=== PATIENT | female | born 1935 | race Caucasian/White ===

== ENCOUNTER 2017-09-25 11:23 | Emergency (ER) | payer MEDICAID, MEDICARE ==
[2017-09-25 13:31] LABS: ABS Basophils 0 10^3/ul (0-0.2); ABS Eosinophils 0.1 10^3/ul (0-0.6); ABS Lymphocytes 1.4 10^3/ul (1.0-4.8); ABS Monocytes 0.4 10^3/ul (0-0.8); ABS Neutrophils 3.8 10^3/ul (1.5-7.7); ABS Nucleated RBC 0 10^3/ul; Eosinophil % 2.4 % (0-6); Hematocrit 43 % (35-47); Hemoglobin 14.4 g/dl (12.0-16.0); Lymphocyte % 23.7 % (25-47); Mean Corpuscular HGB Conc 34 g/dl (31-36); Mean Corpuscular Hemoglobin 31 pg (27-31); Mean Corpuscular Volume 92 fL (80-97); Mean Platelet Volume 6.8 um3 (7.4-10.4); Nucleated Red Blood Cells % 0; Platelet Count 210 10^3/ul (150-450); Red Blood Count 4.68 10^6/ul (4.00-5.40); Red Cell Distribution Width 14 % (10.5-15); White Blood Count 5.8 10^3/ul (3.5-10.8)
--- NOTE | 2017-09-25 13:32 | ED ---
Lower Extremity - HPI Summary HPI Summary: This is scribe Harriettyrel Cali documenting for attending Rivera Díaz MD. 82 year old F referred by PMD to [facility] accompanied by female friend complains of lower left leg edema since this morning. Symptoms aggravated by nothing. Symptoms alleviated by nothing. Patient reports blisters on lower left leg that are itchy. She has applied Neosporin over blisters. Patient denies upper left leg pain, shortness of breath, and chest pain. Patient has no hx PE. - History of Current Complaint Chief Complaint: EDExtremityLower Stated Complaint: LT LEG SWELLING Time Seen by Provider: 09/25/17 13:19 Hx Obtained From: Patient Onset/Duration: Still Present Timing: Constant Location: Other - lower left leg Associated Signs And Symptoms: Positive: Negative - upper left leg pain, shortness of breath, and chest pain, Other - blisters on lower left leg that are itchy Aggravating Factor(s): Nothing Alleviating Factor(s): Nothing - Allergies/Home Medications Allergies/Adverse Reactions: Allergies Allergy/AdvReac Type Severity Reaction Status Date / Time MS Aspirin [Aspirin] Allergy Intermediate Rash Verified 09/23/15 06:56 MS Ibuprofen [Ibuprofen] Allergy Intermediate Hives Verified 09/23/15 06:56 MS NSAIDs [NSAIDs] Allergy Mild Rash Verified 09/23/15 06:56 MS Hydrochlorothiazide Allergy Unknown Hives Verified 09/23/15 06:56 [Hydrochlorothiazide] MS Lisinopril [Lisinopril] Allergy Unknown Hives Verified 09/23/15 06:56 MS Meperidine Allergy Unknown Hives Verified 09/23/15 06:56 [From Demerol HCl] BEES Allergy Swelling Uncoded 09/23/15 06:56 Home Medications: Home Medications Diltiazem CD CAP* [Cardizem CD CAP*] 240 mg PO DAILY 09/25/17 [History Confirmed 09/25/17] Levothyroxine TAB* [Synthroid TAB*] 125 mcg PO DAILY 09/25/17 [History Confirmed 09/25/17] Pravastatin (NF) [Pravachol (NF)] 40 mg PO DAILY 09/25/17 [History Confirmed ] glipiZIDE TAB.XL* [Glucotrol XL*] 5 mg PO BID 09/25/17 [History Confirmed 07/23/ 18] metFORMIN* [Glucophage 1000 MG TAB *] 1,000 mg PO BID 09/25/17 [History Confirmed 09/25/17] PMH/Surg Hx/FS Hx/Imm Hx Previously Healthy: No Endocrine/Hematology History: Reports: 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, Hx Thyroid Disease Cardiovascular History: Reports: Hx Hypercholesterolemia, Hx Hypertension Denies: Hx Pacemaker/ICD, Other Cardiovascular Problems/Disorders Respiratory History: Reports: Hx Seasonal Allergies GI History: Reports: Hx Gastroesophageal Reflux Disease Musculoskeletal History: Reports: Hx Arthritis - BRACE AFO RIGHT LEG, Hx Back Problems, Other Musculoskeletal History - low back pain Sensory History: Reports: Hx Cataracts - JOAQUIN, Hx Contacts or Glasses - glasses, Other Sensory Impairments - mild mental retardation Denies: Hx Hearing Aid Opthamlomology History: Reports: Hx Cataracts - JOAQUIN, Hx Contacts or Glasses - glasses, Other Sensory Impairments - mild mental retardation Neurological History: Reports: Hx Developmental Delay, Other Neuro Impairments/ Disorders - 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 cholecystectomy. left TKR Hx Anesthesia Reactions: No Infectious Disease History: No Infectious Disease History: Denies: Traveled Outside the [place] in Last 30 Days - Family History Known Family History: Positive: Other - Mother and two sisters have cataracts - Social History Alcohol Use: None Hx Substance Use: No Substance Use Type: Reports: None Hx Tobacco Use: No Smoking Status (MU): Never Smoked Tobacco Have You Smoked in the Last Year: No Review of Systems Negative: Chest Pain Negative: Shortness Of Breath Musculoskeletal: Negative - upper left leg pain Positive: Edema - lower left leg Positive: Other - blisters on left leg that are itchy All Other Systems Reviewed And Are Negative: Yes Physical Exam - Summary Physical Exam Summary: Appearance: The patient is well-nourished in no acute distress and in no acute pain. Skin: The skin is warm and dry and skin color reflects adequate perfusion. HEENT: The head is normocephalic and atraumatic. The pupils are equal and reactive. The conjunctivae are clear and without drainage. Nares are patent and without drainage. Mouth reveals moist mucous membranes and the throat is without erythema and exudate. The external ears are intact. The ear canals are patent and without drainage. The tympanic membranes are intact. Neck: The neck is supple with full range of motion and non-tender. There are no carotid bruits. There is no neck vein distension. Respiratory: Chest is non-tender. Lungs are clear to auscultation and breath sounds are symmetrical and equal. Cardiovascular: Heart is regular rate and rhythm. There is no murmur or rub auscultated. There is no peripheral edema and pulses are symmetrical and equal. Abdomen: The abdomen is soft and non-tender. There are normal bowel sounds heard in all four quadrants and there is no organomegaly palpated. Musculoskeletal: Swelling in the left lower extremity with some small erythematous areas and some weeping. Left lower extremity is nontender in the common femoral canal Neurological: Patient is alert and oriented to person, place and time. The patient has symmetrical motor strength in all four extremities. Cranial nerves are grossly intact. Deep tendon reflexes are symmetrical and equal in all four extremities. Psychiatric: The patient has an appropriate affect and does not exhibit any anxiety or depression. Triage Information Reviewed: Yes Vital Signs On Initial Exam: Initial Vitals Temp Pulse Resp BP Pulse Ox 97.1 F 78 16 124/75 95 09/25/17 11:25 09/25/17 11:25 09/25/17 11:25 09/25/17 11:25 09/25/17 11:25 Vital Signs Reviewed: Yes Diagnostics - Vital Signs Vital Signs Temp Pulse Resp BP Pulse Ox 09/25/17 13:16 79 188/99 97 09/25/17 11:25 97.1 F 78 16 124/75 95 - Laboratory Result Diagrams: 09/25/17 13:18 09/25/17 13:18 Lab Statement: Any lab studies that have been ordered have been reviewed, and results considered in the medical decision making process. - Radiology CXR Radiology Interpretation Completed By: Radiologist - CARDIOMEGALY WITH PULMONARY INTERSTITIAL EDEMA. ED physician has reviewed this report. - Additional Comments Diagnostic Additional Comments: Venous Doppler Study, per radiologist, shows CALF EDEMA LEADING TO MILDLY LIMITED EVALUATION OF THE TIBIAL VEINS. NO EVIDENCE OF DEEP VENOUS THROMBOSIS. ED physician has reviewed this report. Re-Evaluation - Re-Evaluation First Eval Re-Evaluation Time: 16:08 Comment: patient feels better and is agreeable to discharge Lower Extremity Course/Dx - Course Course Of Treatment: Ms. Barlow presented with a concern for left lower extremity swelling. She had been noted by her daughter to have some open areas and some blisters on her left lower extremity and swelling today. She complained only of itching and denied pain. Doppler was negative for a DVT. She was afebrile, vitals and labs were within normal limits. I'm not sure why she would have swelling occur so quickly. This could be a contact dermatitis she does state that it's very itchy. Alternatively the swelling may have come on suddenly and gone unnoticed until she began to have some weeping. She has triamcinolone 1% cream at home and I recommended she use that and she elevate her leg to get the swelling down. I recommended close follow-up with her PCP. - Diagnoses Provider Diagnoses: Contact dermatitis Discharge - Sign-Out/Discharge Documenting (check all that apply): Patient Departure - Discharge - Discharge Plan Condition: Stable Disposition: HOME Patient Education Materials: Contact Dermatitis (ED) Referrals: Miguel A Brandon MD [Primary Care Provider] - If Needed Additional Instructions: Elevate your leg as much as possible. Use your Triamcinolone topical cream. Follow up with Dr. Brandon, your primary care provider, if not improved. RETURN TO THE EMERGENCY DEPARTMENT FOR NEW OR WORSENING SYMPTOMS. - Billing Disposition and Condition Condition: STABLE Disposition: Home
[2017-09-25 13:48] LABS: EGFR Non-African American 80.5 (>60)
--- NOTE | 2017-09-25 14:05 | RAD ---
HISTORY: SOB COMPARISONS: 11/21/2007 VIEWS: 2: Frontal and lateral views of the chest. FINDINGS: CARDIOMEDIASTINAL SILHOUETTE: The cardiac silhouette is enlarged. The cardiomediastinal silhouette is otherwise normal. THU: The thu are normal. PLEURA: The costophrenic angles are sharp. No pleural abnormalities are noted. LUNG PARENCHYMA: There is a diffuse reticular pattern with indistinct pulmonary vessels. ABDOMEN: The upper abdomen is clear. There is no subphrenic gas. BONES AND SOFT TISSUES: Degenerative changes are noted along the spine. OTHER: None. IMPRESSION: CARDIOMEGALY WITH PULMONARY INTERSTITIAL EDEMA
--- NOTE | 2017-09-25 15:09 | RAD ---
INDICATION: Pain and swelling. COMPARISON: None TECHNIQUE: Duplex interrogation of the left lowerextremity was performed. FINDINGS: Deep veins: The common femoral, great saphenous, profunda femoris, proximal, mid, and distal deep femoral, popliteal, posterior tibial, and peroneal veins are patent. There is normal compressibility, augmentation, and phasic flow. Evaluation of the tibial veins is mildly limited due to edema Superficial veins: There are no findings of superficial thrombophlebitis. Popliteal fossa:There is no evidence of a popliteal cyst. Soft tissues:Calf edema. IMPRESSION: CALF EDEMA LEADING TO MILDLY LIMITED EVALUATION OF THE TIBIAL VEINS. NO EVIDENCE OF DEEP VENOUS THROMBOSIS.
[2017-09-25 16:37] VITALS: BP 146/96
== END 2017-09-25 16:39 | disposition home or self-care (01) ==
LOC: ED 11:23
DX: L25.9 Unspecified contact dermatitis, unspecified cause (principal); J81.1 Chronic pulmonary edema; I51.7 Cardiomegaly; E11.40 Type 2 diabetes mellitus with diabetic neuropathy, unspecified; E07.9 Disorder of thyroid, unspecified; Z79.84 Long term (current) use of oral hypoglycemic drugs; Z79.899 Other long term (current) drug therapy; Z88.8 Allergy status to other drugs, medicaments and biological substances; Z88.6 Allergy status to analgesic agent; Z88.5 Allergy status to narcotic agent
CPT/HCPCS: 36415; 71046; 80053; 83605; 83880; 84484; 85025; 86140; 87040; 99283

== ENCOUNTER 2018-11-12 16:27 | Inpatient (IN) | payer MEDICAID, MEDICARE ==
--- NOTE | 2018-11-12 17:21 | ED ---
Lower Extremity - HPI Summary HPI Summary: Patient complains of outpatient ultrasound of left leg positive for DVT. States swelling started 3 days ago, was seen by PCP today and arranged for outpatient ultrasound. Patient denies CP, SOB, fever, cough, sore throat, N/V/ V abdominal pain, change in urine, change in BM. Denies history of blood clots , history of cancer, history of recent surgery or trauma, history of long travel. Area of thrombosis extends from external iliac down to posterior tibial. Medical history is DM, hypothyroid. No anti-coag. - History of Current Complaint Chief Complaint: EDExtremityLower Stated Complaint: DVT LT LEG PER PT Time Seen by Provider: 11/12/18 16:42 Hx Obtained From: Patient, Family/Medical Director Mechanism Of Injury: Unknown Severity Currently: None Pain Intensity: 0 Pain Scale Used: 0-10 Numeric Associated Signs And Symptoms: Positive: Swelling, Redness Aggravating Factor(s): Nothing Alleviating Factor(s): Nothing Able to Bear Weight: Yes - Allergies/Home Medications Allergies/Adverse Reactions: Allergies Allergy/AdvReac Type Severity Reaction Status Date / Time aspirin Allergy Intermediate Rash Verified 11/12/18 22:35 ibuprofen Allergy Intermediate Hives Verified 11/12/18 22:35 NSAIDS (Non-Steroidal Allergy Mild Rash Verified 11/12/18 22:35 Anti-Inflamma hydrochlorothiazide Allergy Unknown Hives Verified 11/12/18 22:35 lisinopril Allergy Unknown Hives Verified 11/12/18 22:35 meperidine Allergy Unknown Hives Verified 11/12/18 22:35 BEES Allergy Unknown Swelling Uncoded 11/12/18 22:50 Home Medications: Home Medications Empaglifozin (NF) [Jardiance] 25 mg PO DAILY 11/12/18 [History Confirmed ] Nystatin TOP POWDER* 1 applic TOPICAL BID 11/12/18 [History Confirmed 11/12/18] Torsemide TAB* [Demadex 20 MG*] 20 mg PO DAILY 11/12/18 [History Confirmed 11/12] Valsartan TAB* [Diovan TAB*] 80 mg PO DAILY 11/12/18 [History Confirmed 11/12/18 ] PMH/Surg Hx/FS Hx/Imm Hx Endocrine/Hematology History: Reports: 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, Hx Thyroid Disease Cardiovascular History: Reports: Hx Hypercholesterolemia, Hx Hypertension Denies: Hx Pacemaker/ICD, Other Cardiovascular Problems/Disorders Respiratory History: Reports: Hx Seasonal Allergies GI History: Reports: Hx Gastroesophageal Reflux Disease Musculoskeletal History: Reports: Hx Arthritis - BRACE AFO RIGHT LEG, Hx Back Problems, Other Musculoskeletal History - low back pain Sensory History: Reports: Hx Cataracts - JOAQUIN, Hx Contacts or Glasses - glasses, Other Sensory Impairments - mild mental retardation Denies: Hx Hearing Aid Opthamlomology History: Reports: Hx Cataracts - JOAQUIN, Hx Contacts or Glasses - glasses, Other Sensory Impairments - mild mental retardation Neurological History: Reports: Hx Developmental Delay, Other Neuro Impairments/ Disorders - 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 cholecystectomy. left TKR Hx Anesthesia Reactions: No Infectious Disease History: No Infectious Disease History: Denies: Traveled Outside the [place] in Last 30 Days - Family History Known Family History: Positive: Other - Mother and two sisters have cataracts - Social History Alcohol Use: None Hx Substance Use: No Substance Use Type: Reports: None Hx Tobacco Use: No Smoking Status (MU): Never Smoked Tobacco Have You Smoked in the Last Year: No Review of Systems Constitutional: Negative Eyes: Negative ENT: Negative Cardiovascular: Negative Respiratory: Negative Gastrointestinal: Negative Genitourinary: Negative Musculoskeletal: Negative Skin: Other Neurological: Negative Psychological: Normal All Other Systems Reviewed And Are Negative: Yes Physical Exam - Summary Physical Exam Summary: Redness and swelling to left lower extremity distal to the knee. No pain with palpation. Triage Information Reviewed: Yes Vital Signs On Initial Exam: Initial Vitals Temp Pulse Resp BP Pulse Ox 96.5 F 90 18 119/67 98 11/12/18 16:30 11/12/18 16:30 11/12/18 16:30 11/12/18 16:30 11/12/18 16:30 Vital Signs Reviewed: Yes Appearance: Positive: Well-Appearing Skin: Positive: Warm Head/Face: Positive: Normal Head/Face Inspection Eyes: Positive: Normal ENT: Positive: Normal ENT inspection Neck: Positive: Supple Respiratory/Lung Sounds: Positive: Clear to Auscultation Cardiovascular: Positive: Normal Abdomen Description: Positive: Nontender Musculoskeletal: Positive: Normal Neurological: Positive: Normal Psychiatric: Positive: Normal AVPU Assessment: Alert - [place] Coma Scale Best Eye Response: 4 - Spontaneous Best Motor Response: 6 - Obeys Commands Best Verbal Response: 5 - Oriented Coma Scale Total: 15 Diagnostics - Vital Signs Vital Signs Temp Pulse Resp BP Pulse Ox 11/12/18 16:30 96.5 F 90 18 119/67 98 - Laboratory Result Diagrams: 11/12/18 17:50 11/14/18 05:43 Lab Statement: Any lab studies that have been ordered have been reviewed, and results considered in the medical decision making process. Lower Extremity Course/Dx - Course Course Of Treatment: Patient complains of outpatient ultrasound of left leg positive for DVT. States swelling started 3 days ago, was seen by PCP today and arranged for outpatient ultrasound. Patient denies CP, SOB, fever, cough, sore throat, N/V/V abdominal pain, change in urine, change in BM. Denies history of blood clots, history of cancer, history of recent surgery or trauma, history of long travel. Area of thrombosis extends from external iliac down to posterior tibial. Medical history is DM, hypothyroid. No anti-coag. Vital signs within normal limits. Labs unremarkable. CTA chest taken out of caution due to proximal thrombosis. Positive for bilateral PE with right heart strain.. EKG heart rate of 86, atrial flutter. The computer reading indicates acute [place]. EKG reviewed by attending and by collector of aquarium specimens business analyst sales operations Dr. Sandoval who stated this was not STEMI, and to just treat PE. Admitted to hospitalist. - Diagnoses Provider Diagnoses: DVT (deep venous thrombosis), Pulmonary embolism Discharge ED - Sign-Out/Discharge Documenting (check all that apply): Patient Departure All imaging exams completed and their final reports reviewed: No Patient Received Moderate/Deep Sedation with Procedure: No - Discharge Plan Condition: Stable Disposition: ADMITTED TO [facility] - Billing Disposition and Condition Condition: STABLE Disposition: Admitted to [facility]
--- OUTSIDE RECORDS SUMMARY | 2018-11-12 17:36 | XMS REPORT | Summary of Care ---
:1935 Author Organization [facility] Address [address] [place] [address] Care Team Providers Name Role Phone Miguel A Brandon MD Primary Care Provider Reason for Referral MRI/CAT/PET Scan (Routine) Status Reason Specialty Diagnoses / Procedures Referred By Contact Referred To Contact Closed Diagnoses Left leg swelling Miguel A Brandon, [facility] Procedures VL LOWER EXTREMITY DUPLEX VEINS LEFT [facility] [address] [place] [address] [address] Reason for Visit Reason Comments Check Up left leg swelling since 11/09/2018. Patient notes pain in the left hip. No known injury Encounter Details Date Type Department Care Team Description 11/12/2018 Office Visit [place] [facility] Miguel A Brandon, Left leg swelling (Primary Dx); Medicine MD Essential hypertension; [address] [facility] Controlled type 2 diabetes mellitus without complication, without long-term current use of insulin ([facility]) [place] [address] [phone] Allergies Active Allergy Reactions Severity Noted Date Comments Aspirin Rash 08/20/2013 Bee Hives 09/02/2013 Demerol HIVES Hydrochlorothiazide HIVES Ibuprofen HIVES Lisinopril HIVES Nsaids Rash Low 03/29/2010 documented as of this encounter (statuses as of 11/12/2018) Medications Medication Sig Dispensed Refills Start Date End Date Status sennosides-docusate Take 2 Tabs by 30 Tab 0 09/03/2013 Active sodium (SENOKOT-S, mouth TWICE SENNA S) 8.6-50 MG Oral DAILY. Tab Additional information Patient taking differently: 2 Tab Oral BID PRN, Reported on 10/03/2017 1:21 PM triamcinolone (KENALOG) 0.1 % Apply to legs twice daily 80 g 5 01/05/2018 Active Apply externally Ointment triamcinolone apply to affected area 454 Each 5 02/07/2018 Active (KENALOG,ARISTOCORT) 0.1 % twice a day Apply externally Cream Ibuprofen 200 MG Oral Cap Take 400 mg by mouth 0 Active DAILY NEEDED. glipiZIDE (GLUCOTROL XL) 10 Take 1 Tab by mouth 90 Tab 3 02/13/2018 Active MG Oral TABLET SR 24 HR DAILY. levothyroxine (SYNTHROID) 125 take 1 tablet by mouth 90 Tab 3 04/03/2018 Active MCG Oral Tab once daily pravastatin (PRAVACHOL) 40 MG take 1 tablet by mouth 90 Tab 3 04/05/2018 Active Oral Tab once daily Empagliflozin 25 MG Oral Tab Take 1 Tab by mouth 90 Tab 5 04/19/2018 Active DAILY. torsemide (DEMADEX) 20 MG Take 1 Tab by mouth 90 Tab 3 05/25/2018 Active Oral TabIndications: Leg DAILY. edema, left metFORMIN HCL 1000 MG Oral take 1 tablet by mouth 180 Tab 3 07/09/2018 Active Tab twice a day with meals valsartan (DIOVAN) 80 MG Oral TAKE 1 TABLET BY MOUTH 90 Tab 3 09/10/2018 Active Tab ONCE DAILY Nystatin 337065 UNIT/GM Apply 1 g by Apply externally 180 g 3 11/07/2018 Active externally Powder route TWICE DAILY. Apply to affected areas Nystatin 840189 UNIT/GM Apply 2 g by Apply externally 320 g 3 11/09/2018 Active externally Powder route TWICE DAILY. 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 Needs diabetic shoes from [employer]. Mild intellectual disabilities 09/05/1995 Mixed hyperlipidemia 09/05/1995 documented as of this encounter (statuses as of 11/12/2018) Resolved Problems Problem Noted Date Resolved Date Type 2 diabetes mellitus with hyperosmolarity without coma, 07/17/20182018 without long-term current use of insulin Pain in joint involving left pelvic region and thigh 10/27/2017 02/13/2018 Arthritis of ankle joint 05/19/2015 11/03/2017 Overview: Uses ankle and foot support due to fusion ankle. Hip pain, right 03/22/2013 11/03/2017 Diabetic nephropathy 02/12/2008 07/17/2018 Overview: Macroalbuminura >600 in 12/11. Anaphylat(oid) reaction to ACEI, never tried ARB , already at BP goal with BB and diuretic. ABNORMAL CHEST X-RAY 11/23/2007 11/03/2017 Overview: [facility] preop exam 11/11: bilat round opacities of both nj, right basilar infiltrate. Ct scan [place] 11/11: normal Other tear of cartilage or meniscus of knee, current 11/09/2007 02/13/2018 Overview: MRI left knee-tear of mensicus-Dr Golden Munguia Morbid obesity 09/05/1995 10/24/2018 documented as of this encounter (statuses as of 11/12/2018) Immunizations Name Administration Dates Next Due Influenza (IM) Preservative Free 01/04/2018, 12/25/2013, 12/25/2013, 03/13/2013, 01/18/2012, 12/30/2009, 12/25/2008, 12/13/2007 Influenza Vaccine High Dose 12/05/2014 Influenza Vaccine Whole 12/26/2006 PNEUMOCOCCAL POLYSACCHARIDE VACCINE 12/26/2006 Pneumococcal Conjugate Vaccine 01/05/2014 documented as of this encounter Social History Tobacco Use Types Packs/Day Years Used Date Never Smoker Smokeless Tobacco: Never Used Alcohol Use Drinks/Week oz/Week Comments No Sex Assigned at Date Recorded Not on file Job Start Date Occupation Industry Not on file Not on file Not on file Travel History Travel Start Travel End No recent travel history available. documented as of this encounter Last Filed Vital Signs Vital Sign Reading Time Taken Comments Blood Pressure 108/62 11/12/2018 10:11 AM EDT Pulse 104 11/12/2018 10:11 AM EDT Temperature 36.7 11/12/2018 10:11 AM EDT C (98 F) Respiratory Rate - - Oxygen Saturation 98% 11/12/2018 10:11 AM EDT Inhaled Oxygen Concentration - - Weight 91.2 kg (201 lb) 11/12/2018 10:11 AM EDT Height 157.5 cm (5' 2") 11/12/2018 10:11 AM EDT Body Mass Index 36.76 11/12/2018 10:11 AM EDT documented in this encounter Patient Instructions Patient InstructionsMiguel A Brandon MD - 11/12/2018 10:00 AM EDTBlood test today Ultrasound left leg today to rule out blood clot documented in this encounter Progress Notes Miguel A Brandon MD - 11/12/2018 10:00 AM EDT PATIENT: Yesenia Barlow : 1935 DATE OF SERVICE: 11/12/2018 CHIEF COMPLAINT: Chief Complaint Patient presents with Check Up left leg swelling since 11/09/2018. Patient notes pain in the left hip. No known injury Subjective HISTORY OF PRESENT ILLNESS: Yesenia Barlow is a 83-y.o. female. HPI Here with her sister Patient and sister note 2-3 days new onset swelling left foot ankle calf and behind the knee it evengoes up to left thigh There is small patch of redness dorsum left foot but no drainage no infection symptoms There is mild red discoloration of left calf No trauma No new joint symptoms No history deep vein thrombosis She uses diuretic daily No history cancer No recent immoblity or orthopedic surgery Patient Active Problem List Diagnosis Other specified hypothyroidism Essential hypertension Controlled type 2 diabetes mellitus without complication, without long- term current use of insulin (HCC) Mild intellectual disabilities Mixed hyperlipidemia Hip arthritis Knee pain, right Osteoarthritis of hip S/P total hip arthroplasty History of total right hip replacement Primary osteoarthritis of right knee S/P ankle fusion Hammertoe, bilateral Family History Problem Relation Age of Onset Cancer Mother LUNG Heart Father Breast Cancer Other Current Outpatient Medications Medication Sig Empagliflozin 25 MG Oral Tab Take 1 Tab by mouth DAILY. glipiZIDE (GLUCOTROL XL) 10 MG Oral TABLET SR 24 HR Take 1 Tab by mouth DAILY. Ibuprofen 200 MG Oral Cap Take 400 mg by mouth DAILY NEEDED. levothyroxine (SYNTHROID) 125 MCG Oral Tab take 1 tablet by mouth once daily metFORMIN HCL 1000 MG Oral Tab take 1 tablet by mouth twice a day with meals Nystatin 698008 UNIT/GM Apply externally Powder 1 g by Apply externally route TWICE DAILY. Apply to affected areas Nystatin 286378 UNIT/GM Apply externally Powder 2 g by Apply externally route TWICE DAILY. Apply to affected areas pravastatin (PRAVACHOL) 40 MG Oral Tab take 1 tablet by mouth once daily sennosides-docusate sodium (SENOKOT-S, SENNA S) 8.6-50 MG Oral Tab Take 2 Tabs by mouth TWICEDAILY. (Patient taking differently: Take 2 Tabs by mouth TWO TIMES DAILY NEEDED.) torsemide (DEMADEX) 20 MG Oral Tab Take 1 Tab by mouth DAILY. triamcinolone (KENALOG) 0.1 % Apply externally Ointment Apply to legs twice daily triamcinolone (KENALOG,ARISTOCORT) 0.1 % Apply externally Cream apply to affected area twice a day valsartan (DIOVAN) 80 MG Oral Tab TAKE 1 TABLET BY MOUTH ONCE DAILY No current facility-administered medications for this visit. Allergies Allergen Reactions Aspirin Rash Bee Hives Demerol HIVES Hctz [Hydrochlorothiazide] HIVES Ibuprofen HIVES Lisinopril HIVES Nsaids Rash Social History Socioeconomic History Marital status: Single Spouse name: Not on file Number of children: Not on file Years of education: Not on file Highest education level: Not on file Occupational History Not on file Social Needs Financial resource strain: Not on file Food insecurity: Worry: Not on file Inability: Not on file Transportation needs: Medical: Not on file Non-medical: Not on file Tobacco Use Smoking status: Never Smoker Smokeless tobacco: Never Used Substance and Sexual Activity Alcohol use: No Drug use: No Sexual activity: Not on file Lifestyle Physical activity: Days per week: Not on file Minutes per session: Not on file Stress: Not on file Relationships Social connections: Talks on phone: Not on file Gets together: Not on file Attends moravian service: Not on file Active member of club or organization: Not on file Attends meetings of clubs or organizations: Not on file Relationship status: Not on file Intimate partner violence: Fear of current or ex partner: Not on file Emotionally abused: Not on file Physically abused: Not on file Forced sexual activity: Not on file Other Topics Concern Back Care Not Asked Bike Helmet Not Asked Blood Transfusions Not Asked Caffeine Concern Yes Comment: 1-2 CUPS COFFEE DAILY Exercise No Hobby Hazards Not Asked International Travel Not Asked Service Not Asked Occupational Exposure Not Asked Seat Belt Not Asked Self-Exams Not Asked Sleep Concern Not Asked Special Diet Yes Comment: low carbo and sodium Stress Concern No Weight Concern Not Asked Social History Narrative Lives with sister in [place] Does not work ROS no pulmonary symptoms no diabetes mellitus related symptoms Lab Results Component Value Date GLYCO 7.1 (H) 10/17/2018 Objective PHYSICAL EXAM: VITALS: BP 108/62 | Pulse 104 | Temp 98 F (36.7 C) | Ht 5' 2" ( 1.575 m) | Wt 201 lb (91.2 kg) | SpO2 98% | BMI 36.76 kg/m Body mass index is 36.76 kg/m. Physical Exam 2+ dorsal pedis, posterior tibial and popliteal pulses bilaterally to palpation in both lower extremities. Left thigh and calf swelling mild left posterior calf tenderness There are varicose veins seen left thigh No popliteal or calf mass Skin intact There is 1x1 cm patch of eczema dorsum left foot no infection ASSESSMENT / IMPRESSION: ICD-9-CM ICD-10-CM 1. Left leg swelling rule out deep vein thrombosis d dimer and ultrasound 729.81 M79.89 VL LOWER EXTREMITY DUPLEX VEINS LEFT CBC WITH DIFFERENTIAL COMPREHENSIVE METABOLIC PANEL D DIMER 2. Essential hypertension at goal continue current medications 401.9 I10 3. Controlled type 2 diabetes mellitus without complication, without long-term current use of insulin (HCC) at goal 250.00 E11.9 Patient Instructions Blood test today Ultrasound left leg today to rule out blood clot ' Miguel A Brandon MD 11/12/2018 12:22 documented in this encounter Plan of Treatment Date Type Specialty Care Team Description 01/21/2019 Lab Internal Medicine 01/29/2019 Office Visit Internal Medicine Miguel A Brandon MD [address] [place] [address] [phone] Name Type Priority Associated Diagnoses Date/Time CBC WITH DIFFERENTIAL Lab Routine Left leg swelling 11/12/2018 11:06 AM EDT COMPREHENSIVE METABOLIC Lab Routine Left leg swelling 11/12/2018 11:06 AM EDT PANEL D DIMER Lab Routine Left leg swelling 11/12/2018 11:06 AM EDT Name Type Priority Associated Diagnoses Order Schedule VL LOWER EXTREMITY Imaging Routine Left leg swelling 1 Occurrences starting DUPLEX VEINS LEFT 11/12/2018 until 11/12/2019 Health Maintenance Due Date Last Done Comments MEDICARE ANNUAL WELLNESS 1935 VISIT HIV SCREENING 1952 ZOSTER IMMUNIZATION SERIES 1987 (1 of 2) Diabetic Eye Exam 06/16/2016 06/17/2015 (Previously completed) FOOT EXAM 10/11/2017 10/11/2016, 10/11/2016, 08/28/2015, Additional history exists INFLUENZA VACCINE (#1) 2018 01/04/2018, 12/05/2014, 12/25/2013, Additional history exists DEPRESSION SCREENING 01/16/2019 01/16/2018 FALL RISK ASSESSMENT 01/16/2019 01/16/2018, 01/16/2018 HEMOGLOBIN A1C 01/17/2019 10/17/2018, 07/14/2018, 04/11/2018, Additional history exists PNEUMOCOCCAL 65+YRS Completed 01/05/2014, 12/26/2006 HPV IMMUNIZATION SERIES Aged Out No longer eligible based on patient's age to complete this topic MENINGOCOCCAL VACCINE IMM Aged Out No longer eligible based on patient's age to complete this topic documented as of this encounter Goals Goal Patient Goal Associated Recent Patient-Stated? Author Type Problems Progress Blood Pressure Blood Pressure 108/62 No Roma, < 140/90 (11/12/2018 Miguel A Adair, 10:11 AM EDT) Note: This is an individualized treatment (blood pressure) goal for Yesenia Barlow: Displayed above (on the left) is your goal for blood pressure control. Your most recent blood pressure is also shown above, on the right. You should try to achieve blood pressures that are lower than your goal listed above (on the left). Glycohemoglobin A1c < 7.0 Diabetes 7.1 (10/17/2018 7:42 AM Miguel A Morrow, EDT) Note: This is an individualized treatment (diabetes control, HgbA1C) goal for Yesenia Barlow: Displayed above is your progress towards your HgbA1C goal. Your goal is shown above (on the left); your most recent HgbA1C is shown on the right. Note that lower numbers are better. Weight loss vs. 18 mo Lifestyle 55.2 (11/12/2018 10:11 AM Miguel A Morrow MD max (lbs) >= 10 EDT) Note: This is an individualized lifestyle goal for Yesenia Barlow: Your body mass index (BMI) is more than 30. You should lose weight. A reasonable starting goal is to lose 10 pounds. Displayed above is how many pounds you have lost thus far towards your 10 pound weight loss goal. Keep immunizations current Lifestyle Miguel A Morrow MD Note: This is an individualized lifestyle goal for Yesenia Barlow: Please be sure to keep up-to-date on recommended immunizations. For example, this would include a yearly influenza vaccine. Immunization status can be seen by looking at the Health Maintenance sections of your [facility], Plan of Care, and any After Visit Summaries. Take all prescribed medications as Self-management Miguel A Morrow MD directed Note: This is an individualized self-management goal for Yesenia Barlow: Please take all prescribed medications as directed. 1. Do not skip doses. If you cannot afford your medications, talk with your doctor. 2. Use a pill reminder system such as a pill box if needed. Your pharmacist can help you with this. 3. Contact your Pharmacy 5 days before your medication runs out. If you cannot take your medications for any reasons, talk with your doctor. 4. Please bring all of your medication bottles and inhalers (or a list of all your medications/inhalers) with you to every visit. Potential barriers to meeting all of your care plan goals will continue to be addressed on an ongoing basis. 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 Shelf Model / Serial Identifier Expiration Date / Lot [employer] Hole Cup Size 54 - [id number] Right: BIOMET 2022 [id number] / Implanted: Qty: 1 on 09/02/2013 by Nico Rosenberg MD at [facility] Hip / [id number] Neutral Arcomxl Liner - 36f - [id number] Right: BIOMET 12/04/2017 [id number] / Implanted: Qty: 1 on 09/02/2013 by Nico Rosenberg MD at [facility] Hip / [id number] Femoral Porous Stem Right: 08/04/2022 [id number] / Implanted: Qty: 1 on 09/02/2013 by Nico Rosenberg MD at [facility] Hip / [id number] 36mm Femoral Head Size Std - [id number] Right: BIOMET 06/05/2023 11- [id number] / Implanted: Qty: 1 on 09/02/2013 by Nico Rosenberg MD at [facility] Hip / documented as of this encounter Results Not on filedocumented in this encounter Visit Diagnoses Diagnosis Left leg swelling - Primary Essential hypertension Unspecified essential hypertension Controlled type 2 diabetes mellitus without complication, without long-term current use of insulin (HCC) documented in this encounter (Home) [place], [place] [phone] [id number] (Work) documented as of this encounter
--- OUTSIDE RECORDS SUMMARY | 2018-11-12 17:36 | XMS REPORT | Summary of Care ---
:1935 Author Organization [facility] Address [address] [place] [address] Care Team Providers Name Role Phone Miguel A Brandon MD Primary Care Provider Reason for Visit Reason Comments Diabetes Follow up. Last A1C was 7.1 on 10/17/2018. Facial Swelling Right sided facial swelling with soarness since yesterday. Encounter Details Date Type Department Care Team Description 10/24/2018 Office Visit [place] [facility] Miguel A Brandon, Controlled type 2 diabetes mellitus without complication, without long-term current use of insulin (HCC) (Primary Dx); Medicine MD Essential hypertension; [address] BMI 38.0-38.9,adult; [place] [address] [place] [id number] Right facial swelling [phone] Allergies Active Allergy Reactions Severity Noted Date Comments Aspirin Rash 08/20/2013 Bee Hives 09/02/2013 Demerol HIVES Hydrochlorothiazide HIVES Ibuprofen HIVES Lisinopril HIVES Nsaids Rash Low 03/29/2010 documented as of this encounter (statuses as of 10/24/2018) Medications Medication Sig Dispensed Refills Start Date End Date Status sennosides-docusate Take 2 Tabs by 30 Tab 0 09/03/2013 Active sodium (SENOKOT-S, mouth TWICE SENNA S) 8.6-50 MG Oral DAILY. Tab Additional information Patient taking differently: 2 Tab Oral BID PRN, Reported on 10/03/2017 1:21 PM triamcinolone Apply to legs 80 g 5 01/05/2018 Active (KENALOG) 0.1 % twice daily Apply externally Ointment triamcinolone apply to affected 454 Each 5 02/07/2018 Active (KENALOG,ARISTOCORT) area twice a day 0.1 % Apply externally Cream Ibuprofen 200 MG Take 400 mg by 0 Active Oral Cap mouth DAILY NEEDED. glipiZIDE (GLUCOTROL Take 1 Tab by 90 Tab 3 02/13/2018 Active XL) 10 MG Oral mouth DAILY. TABLET SR 24 HR levothyroxine take 1 tablet by 90 Tab 3 04/03/2018 Active (SYNTHROID) 125 MCG mouth once daily Oral Tab pravastatin take 1 tablet by 90 Tab 3 04/05/2018 Active (PRAVACHOL) 40 MG mouth once daily Oral Tab Empagliflozin 25 MG Take 1 Tab by 90 Tab 5 04/19/2018 Active Oral Tab mouth DAILY. torsemide (DEMADEX) Take 1 Tab by 90 Tab 3 05/25/2018 Active 20 MG Oral mouth DAILY. TabIndications: Leg edema, left metFORMIN HCL 1000 take 1 tablet by 180 Tab 3 07/09/2018 Active MG Oral Tab mouth twice a day with meals valsartan (DIOVAN) TAKE 1 TABLET BY 90 Tab 3 09/10/2018 Active 80 MG Oral Tab MOUTH ONCE DAILY Nystatin 313796 1 g by Apply 180 g 3 09/12/2018 Active UNIT/GM Apply externally route externally Powder TWICE DAILY. Apply to affected areas diltiazem (CARDIZEM take 1 capsule by 90 Cap 3 04/03/2018 Discontinued CD) 240 MG Oral mouth once daily 019 (Provider CAPSULE SR 24 HR Discontinued) documented as of this encounter (statuses as of 10/24/2018) Active Problems Problem Noted Date Hammertoe, bilateral 07/17/2018 S/P ankle fusion 09/17/2016 Primary osteoarthritis of right knee 02/25/2016 History of total right hip replacement 12/05/2014 S/P total hip arthroplasty 09/26/2013 Osteoarthritis of hip 08/14/2013 Knee pain, right 07/19/2013 Hip arthritis 03/25/2013 Other specified hypothyroidism 09/05/1995 Essential hypertension 09/05/1995 Controlled type 2 diabetes mellitus without complication, without 09/05/1995 long-term current use of insulin Overview: Sees loss prevention representative regularly for nail care and hammertoes. Needs diabetic shoes from [employer]. Mild intellectual disabilities 09/05/1995 Mixed hyperlipidemia 09/05/1995 documented as of this encounter (statuses as of 10/24/2018) Resolved Problems Problem Noted Date Resolved Date [...] as of this encounter (statuses as of 10/24/2018) Immunizations Name Administration Dates Next Due Influenza [...] Sign Reading Time Taken Comments Blood Pressure 104/70 10/24/2018 7:37 AM EDT Pulse 87 10/24/2018 7:37 AM EDT Temperature 36.9 10/24/2018 7:37 AM EDT C (98.4 F) Respiratory Rate - - Oxygen Saturation 94% 10/24/2018 7:37 AM EDT Inhaled Oxygen Concentration - - Weight 98.9 kg (218 lb) 10/24/2018 7:37 AM EDT Height 160 cm (5' 3") 10/24/2018 7:37 AM EDT Body Mass Index 38.62 10/24/2018 7:37 AM EDT documented in this encounter Patient Instructions Patient InstructionsMiguel A Brandon MD - 10/24/2018 7:40 AM EDTYou have lost 38 pounds Congratulations! Next goal weight is <200 lb Stop diltiazem the blood pressure is fine Diabetes mellitus is under control Right facial swelling see dentist for this Diabetes mellitus blood work 3 months documented in this encounter Progress Notes Miguel A Brandon MD - 10/24/2018 7:40 AM EDT PATIENT: Yesenia Barlow : 1935 DATE OF SERVICE: 10/24/2018 CHIEF COMPLAINT: Chief Complaint Patient presents with Diabetes Follow up. Last A1C was 7.1 on 10/17/2018. Facial Swelling Right sided facial swelling with soarness since yesterday. Subjective HISTORY OF PRESENT ILLNESS: Yesenia Barlow is a 83-y.o. female. HPI Here with niece for follow up to diabetes mellitus and hypertension she has right facial redness andswelling one week no sinus symptoms no lip or tongue swelling she has no teeth and has dentures and no mouth or gum pain She has lost weight 38 lb since fall 2017 with low carbohydrate diet and drinking more water\\ Wt Readings from Last 3 Encounters: 10/24/18 218 lb (98.9 kg) 07/17/18 224 lb (101.6 kg) 04/19/18 241 lb (109.3 kg) she feels better Lab Results Component Value Date GLYCO 7.1 (H) 10/17/2018 Patient Active Problem List Diagnosis Other specified [...] mouth twice a day with meals Nystatin 929896 UNIT/GM Apply externally Powder 1 g by [...] file Gets together: Not on file Attends sabianism service: Not on file Active member of [...] Social History Narrative Lives with sister in [place] Does not work ROS no cardiovascular symptoms no gastro-intestinal symptoms Objective PHYSICAL EXAM: VITALS: BP 104/70 | Pulse 87 | Temp 98.4 F (36.9 C) | Ht 5' 3" (1.6 m) | Wt 218 lb (98.9 kg) | SpO2 94% | BMI 38.62 kg/m Body mass index is 38.62 kg/m. Physical Exam mild right facial swelling no cellulitis of cheek no maxillary tenderness Nasal exam; septum midline, no deformities, nares patent, normal mucosa without swelling, no polyps, no bleeding. S1 and S2 normal, no murmurs, clicks, gallops or rubs. Regular rate and rhythm. Chest is clear; no wheezes or rales. No edema or JVD. ASSESSMENT / IMPRESSION: ICD-9-CM ICD-10-CM 1. Controlled type 2 diabetes mellitus without complication, without long-term current use of insulin (HCC) at goal continue current medications hemoglobin A1C three month if <7 then stop [id number] E11.9 2. Essential hypertension at goal continue torsemide and angiotensin receptor lissa stop diltiazem 401.9 I10 3. BMI 38.0-38.9,adult continue diet and weight loss V85.38 Z68.38 4. Right facial swelling unclear cause dentist recommended to rule out dental source 784.2 R22.0 Patient Instructions You have lost 38 pounds Congratulations! Next goal weight is <200 lb Stop diltiazem the blood pressure is fine Diabetes mellitus is under control Right facial swelling see dentist for this Diabetes mellitus blood work 3 months : Miguel A Brandon MD 10/24/2018 08:00 documented in this encounter Plan of Treatment Date Type Specialty Care Team Description 01/21/2019 Lab Internal Medicine 01/29/2019 Office Visit Internal Medicine Miguel A Brandon MD [address] [place] [address] [phone] Health Maintenance Due Date Last Done Comments [...] Type Problems Progress Blood Pressure Blood Pressure 104/70 Maggie Brandon, < 140/90 (10/24/2018 Miguel A Adair, 7:37 AM EDT) Note: This is an individualized [...] better. Weight loss vs. 18 mo Lifestyle 38.2 (10/24/2018 7:37 AM Miguel A Morrow MD max (lbs) [...] of this encounter Implants Implanted Type Area Casino Accountant Device Shelf Model / Serial Identifier Expiration Date / Lot [employer] Hole Cup Size 54 - [id number] Right: BIOMET 2022 [id number] / Implanted: Qty: 1 on 09/02/2013 by Nico Rosenberg MD at [facility] / [id number] Neutral Arcomxl Liner - 36f - [id number] Right: BIOMET 12/04/2017 [id number] / Implanted: Qty: 1 on 09/02/2013 by Nico Rosenberg MD at [facility] Hip / [id number] Femoral Porous Stem Right: 08/04/2022 [id number] / Implanted: Qty: 1 on 09/02/2013 by Nico Rosenbegr MD at [facility] Hip / [id number] 36mm Femoral Head Size Std - [id number] Right: BIOMET 06/05/2023 [id number]- [id number] / Implanted: Qty: 1 on 09/02/2013 by Nico Rosenberg MD at [facility] Hip / documented as of this encounter Results Not on filedocumented in this encounter Visit Diagnoses Diagnosis Controlled type 2 diabetes mellitus without complication, without long-term current use of insulin (HCC) - Primary Essential hypertension Unspecified essential hypertension BMI 38.0-38.9,adult Body Mass Index 38.0-38.9, adult Right facial swelling Swelling, mass, or lump in head and neck documented in this encounter (Home) [place], [place] [phone] (Work) documented as of this encounter
[2018-11-12 17:56] LABS: ABS Basophils 0.1 10^3/ul (0-0.2); ABS Eosinophils 0.1 10^3/ul (0-0.6); ABS Lymphocytes 1.5 10^3/ul (1.0-4.8); ABS Monocytes 0.6 10^3/ul (0-0.8); ABS Neutrophils 4.7 10^3/ul (1.5-7.7); Eosinophil % 1.7 %; Hematocrit 40 % (35-47); Hemoglobin 13.3 g/dL (12.0-16.0); Lymphocyte % 21.2 %; Mean Corpuscular HGB Conc 34 g/dL (31-36); Mean Corpuscular Hemoglobin 32 pg (27-31); Mean Corpuscular Volume 95 fL (80-97); Mean Platelet Volume 7.3 fL (7.4-10.4); Platelet Count 104 10^3/uL (150-450); Red Cell Distribution Width 15 % (10-15); White Blood Count 6.9 10^3/uL (3.5-10.8)
[2018-11-12 18:28] LABS: Albumin 3.7 g/dL (3.2-5.2); Albumin/Globulin Ratio 1.3 (1-3); BUN/Creatinine Ratio 40.4 (8-20); C Reactive Protein 10.28 mg/L (<8.01); Calcium 9.3 mg/dL (8.6-10.3); EGFR African American 61.5 (>60); EGFR Non-African American 50.9 (>60); Globulin 2.9 g/dL (2-4); Potassium 4.2 mmol/L (3.5-5.0); Total Bilirubin 0.5 mg/dL (0.2-1.0); Total Protein 6.6 g/dL (6.4-8.9)
[2018-11-12] MEDS ORDERED: Iodixanol* (CONTRAST) 320 MG/ML 100 ML SDV IV ONE (18:45)
[2018-11-12] MEDS ORDERED: Enoxaparin(*) 100 MG/ML SYR SUBCUT ONE (19:58)
[2018-11-12 20:36] LABS: INR 1.03 (0.82-1.09)
[2018-11-12 20:43] LABS: Troponin I 0.05 ng/mL (<0.04)
[2018-11-12] MEDS ORDERED: Dextrose 50% VIAL 50 ml IV PUSH PRN (22:30)
[2018-11-12 23:44] LABS: Troponin I 0.04 ng/mL (<0.04)
--- NOTE | 2018-11-13 00:06 | PN ---
Hospitalist Progress Note Date of Service: 11/13/18 HOSPITALIST ADDENDUM Patient now in rate controlled atrial flutter with no new complaints, in the setting of acute PE. Continue to monitor on Telemetry, already anticoagulated with Lovenox. F/u echocardiogram.
--- NOTE | 2018-11-13 01:01 | HP ---
CC: Dr. Brandon * HISTORY AND PHYSICAL: DATE OF ADMISSION: 11/12/18 TIME OF EVALUATION: 9:10 p.m. PRIMARY CARE PROVIDER: Dr. Brandon. CHIEF COMPLAINT: "Her left leg is swollen" as per sister. HISTORY OF PRESENT ILLNESS: Ms. Barlow is an 83-year-old lady with a past medical history of intellectual disability, type 2 diabetes, hypothyroidism, hypertension, arthritis who was brought into the emergency room by her sister after the patient was found to have left leg DVT. Most of the history is obtained from her sister at bedside. She stated that the patient has had bilateral lower extremity edema for a long time that responded to torsemide. Four days ago, she noted that her left leg was very swollen, so she contacted her primary care provider and the soonest that she could get an appointment to be seen was today. They had lower extremity Doppler as outpatient that revealed extensive left lower extremity DVT extending to the left external iliac vein to the posterior tibial vein. The patient was advised to come to the emergency room for further evaluation. She denies any chest pain, palpitations, shortness of breath, but she had a CTA of the chest performed in the emergency room that revealed PE with right heart strain, so the hospitalist service was consulted for admission. The patient does not remember any trauma to her left leg. She denies any recent trips. There is no prior history of blood clots. PAST MEDICAL HISTORY: 1. Type 2 diabetes. 2. Hypothyroidism. 3. Hypertension. 4. Arthritis. 5. Intellectual disability. 6. GERD. PAST SURGICAL HISTORY: 1. Status post appendectomy. 2. Status post cholecystectomy. 3. Status post right hip replacement in 2013. 4. Status post left knee replacement in 2009. 5. Status post bilateral cataract surgery. FAMILY HISTORY: Reviewed with the sister and noncontributory. SOCIAL HISTORY: No history of tobacco, alcohol, or drug use. Her sister Tamie Barlow, phone number [phone] has been her main crystalizer tender for the past 20 years and is her surrogate decision maker. REVIEW OF SYSTEMS: A 14-point review of systems was performed, and all the pertinent negatives and positive findings are in the HPI. PHYSICAL EXAMINATION GENERAL: The patient is an elderly obese lady, sitting up in the ED stretcher, in no acute distress. VITAL SIGNS: Temperature 97.3, heart rate is 97, respiratory rate is 18, oxygen saturation is 99% on room air, blood pressure is 131/43. HEENT: Pupils are equal. Moist mucous membranes. CHEST: Breath sounds are present bilaterally, diminished in bases with no added sounds. CVS: Normal S1, S2. Regular rate and rhythm. ABDOMEN: Obese, soft, nontender. Bowel sounds present. EXTREMITIES: There is severe left lower extremity edema extending all the way up to her thigh. There is good capillary refill. Good pulses. NEURO: She is alert, awake, oriented x3 (but with sister's assistance to answer the questions). She is able to move all 4 extremities. Face is symmetric. LABORATORY AND IMAGING DATA: The patient had a CBC that showed a WBC of 6.9, hemoglobin of 13.3, hematocrit of 40, platelets of 104 with 67% neutrophils. Coagulation showed INR 1.03. Chemistry showed sodium 142, potassium of 4.2, chloride of 107, bicarb of 28, BUN of 42, creatinine of 1.04, glucose of 100. Calcium of 9.3. LFTs are normal. First troponin was 0.05. Lower extremity Doppler done earlier today as outpatient showed extensive left lower extremity DVT extending from the level of the external iliac vein inferiorly through the posterior tibial vein. CTA of the chest showed bilateral pulmonary embolism right greater than left with evidence of right heart strain and CT findings suggestive of congestive heart failure. ASSESSMENT AND PLAN: Ms. Barlow is an 83-year-old female with a past medical history of type 2 diabetes, obesity with a BMI of 35, hypothyroidism, hypertension, arthritis, cognitive impairment who presented to [facility] for an outpatient lower extremity Doppler due to left leg edema for 4 days, found to have extensive deep vein thrombosis, and referred to emergency room and found to have bilateral PE with findings of heart strain. 1. Pulmonary embolism/deep vein thrombosis. The patient's only complaint at this time is that her left leg is swollen. She denies chest pain, palpitations , or shortness of breath. The patient's sister states that Monday the patient had to sit down once while she was doing the dishes and she thought that was unusual, but other than that she has noted no other concerning symptoms. The patient will be admitted as observation to telemetry floor and we will continue the Lovenox that was already started in the emergency room. She will have a transthoracic echocardiogram to assess her right ventricle. The etiology of her venous thromboembolism is unclear at this time. There is no history of trauma, fall, prolonged trip, and as far as the sister knows there is no family history of blood clots. Considering her age and extensive deep vein thrombosis like this is concerning for underlying malignancy, but I believe this workup can be done by her primary care provider as outpatient. At this point, the patient is now requiring symptomatic treatment. She is able to obtain oxygen saturation of 99% on room air. Depending on her echocardiogram result, then decision will be made on what oral agent the patient will be transitioned to. 2. Type 2 diabetes. We will continue glipizide and add a lispro sliding scale. 3. Hypothyroidism. We will continue levothyroxine. 4. Hypertension. It is controlled at this time. We will continue diltiazem and ARB with holding parameters. 5. Hyperlipidemia. We will continue statin. 6. DVT prophylaxis: The patient has a score of 7 on a DVT Prophylaxis Risk Assessment Guide and she is already anticoagulated with Lovenox. 7. Code status was discussed with the sister and the wishes are for the patient to be a full code. TIME SPENT: Approximately 55 minutes was spent with the patient and sister interview, medical records review, physical examination to complete the admission, more than half of this time was spent [id number] with the patient and coordination of care. [id number]/[facility] #: [id number] NEIL
[2018-11-13 02:36] LABS: Troponin I 0.05 ng/mL (<0.04)
[2018-11-13] MEDS: Levothyroxine TAB* 125 MCG TAB PO SCH (05:54)
[2018-11-13] MEDS: Insulin LISPRO* 1 UNITS UNIT SUBCUT SCH ×4 (08:30→20:43)
[2018-11-13] MEDS: Diltiazem CD CAP* 240 MG PO SCH (08:32)
[2018-11-13] MEDS: Valsartan TAB* 80 MG PO SCH (08:32)
[2018-11-13] MEDS: glipiZIDE TAB.XL* 5 MG PO SCH (08:41)
[2018-11-13] MEDS: Atorvastatin* 10 MG TAB PO SCH (08:41)
[2018-11-13] MEDS: Nystatin TOP POWDER* 15 GM BTL TOPICAL SCH ×2 (08:46→20:44)
[2018-11-13] MEDS ORDERED: Enoxaparin(*) 100 MG/ML SYR SUBCUT SCH (09:00)
[2018-11-13] MEDS ORDERED: Perflutren Lipid Microsphere* 3 ML VIAL ONE (09:17)
--- NOTE | 2018-11-13 10:31 | PN ---
Subjective Date of Service: 11/13/18 Interval History: 83 y/o F with h/o cognitive impairment, T2DM, Hypothyroidism, HTN presented with left leg DVT. Found to have b/l PE with possible right heart strain. On enoxaparin. No further complaint now. No chest pain, palpitation or SOB. Was able to walk to bathroom with the help of aide without any SOB. Objective Active Medications: Atorvastatin Calcium (Lipitor*) 10 mg PO DAILY [facility]; Protocol Last Admin: 11/13/18 08:41 Dose: 10 mg Dextrose (Dextrose 50% Vial 50 Ml*) 25 ml IV PUSH .FOR FS < 60 - SS PRN PRN Reason: FS < 60 Diltiazem HCl (Cardizem Cd Cap*) 240 mg PO DAILY [facility] Last Admin: 11/13/18 08:32 Dose: Not Given Enoxaparin Sodium (Lovenox(*)) 90 mg SUBCUT Q12H [facility] Last Admin: 11/13/18 08:42 Dose: 90 mg Glipizide (Glucotrol Xl*) 10 mg PO DAILY WITH MEAL [facility] Last Admin: 11/13/18 08:41 Dose: 10 mg Insulin Human Lispro (Humalog*) 0 units SUBCUT ACHS [facility]; Protocol Last Admin: 11/13/18 08:30 Dose: Not Given Levothyroxine Sodium (Synthroid Tab*) 125 mcg PO DAILY@0600 [facility] Last Admin: 11/13/18 05:54 Dose: 125 mcg Nystatin (Nystatin Top Powder*) 1 applic TOPICAL BID [facility] Last Admin: 11/13/18 08:46 Dose: 1 applic Valsartan (Diovan Tab*) 80 mg PO DAILY [facility] Last Admin: 11/13/18 08:32 Dose: Not Given Vital Signs - 8 hr 11/13/18 11/13/18 11/13/18 03:49 07:00 08:00 Temperature 98.6 F 97.5 F Pulse Rate 86 86 Respiratory 18 12 12 Rate Blood Pressure 139/64 104/59 (mmHg) O2 Sat by Pulse 96 96 Oximetry Oxygen Devices in Use Now: None Exam: Patient is lying on a bed with no any acute distress. Heent: Normocephalic and atraumatic Lungs: Clear on auscultation with no any added sound. Heart: S1/S2 heard with no any murmur or rub. Abdomen: Soft, nondistended and nontender. Normla bowel sound heard. Extremities: LLE: Swelling from ankle to thigh with redness and warmth and tenderness. Distal pulse palpable. Other extremity normal. Neuro: ALert, oriented and conscious. Moving all four extremity. Result Diagrams: 11/12/18 17:50 11/12/18 17:50 Assess/Plan/Problems-Billing Assessment: 83 y/o F with PMH of intellectual disability, T2DM, Hypothyroid, HTN presented with left leg swelling and found to have Lft leg DVT and submassive PE. On enoxaparin. - Patient Problems (1) Pulmonary embolism Current Visit: Yes Status: Acute Code(s): I26.99 - OTHER PULMONARY EMBOLISM WITHOUT ACUTE COR PULMONALE SNOMED Code(s): 44790503 Comment: B/L submassive PE 2/2 DVT with possible strain to right heart. NO O2 requirment , pt doing clinically well. No CP, palpitation and SOB. Pt is able to ambulate with walker on baseline and needs caregiver. No recent travel, immobility or trauma or major surgery.Probabaly unprovoked event. Had 51 lb weight loss in 1 year which was partly intentional. She is been taken care by her sister who states that they don't want any workup for malignancy. Plan is to do echo for right heart strain. If echo normal and if patient does not want workup for malignancy then can be d/c on oral ac. Currently on lovenox 90 mg BID, advocate for transition to DOAC (2) Left leg DVT Current Visit: Yes Status: Acute Code(s): I82.402 - ACUTE EMBOLISM AND THOMBOS UNSP DEEP VEINS OF L LOW EXTREM SNOMED Code(s): 690582552 Comment: Extending to left external iliac vein to posterior tibial vein. Probably unprovoked. Needs workup for any occult malignancy but patient sister doesnot want any workup; who is decision maker for her. Now on lovenox 90 mg. will transition to eliquis. Atleast requires AC for 3 month and then upon further assessment of recurrence may require it lifelong. (3) Hypertension Current Visit: Yes Status: Acute Code(s): I10 - ESSENTIAL (PRIMARY) HYPERTENSION SNOMED Code(s): 27593791 Comment: On diltiazem and valsartan. Currently on hold as BP was < 110. (4) T2DM (type 2 diabetes mellitus) Current Visit: Yes Status: Acute Comment: On glipizide and Insulin ss. (5) Hypothyroidism Current Visit: Yes Status: Acute Code(s): E03.9 - HYPOTHYROIDISM, UNSPECIFIED SNOMED Code(s): 67952615 Comment: Continue levothyroxine 125 mcg. (6) Thrombocytopenia Current Visit: Yes Status: Acute Code(s): D69.6 - THROMBOCYTOPENIA, UNSPECIFIED SNOMED Code(s): 759411065 Comment: Continue to monitor (7) DVT prophylaxis Current Visit: Yes Status: Acute Code(s): Z29.9 - ENCOUNTER FOR PROPHYLACTIC MEASURES, UNSPECIFIED SNOMED Code(s): 685472972 Comment: Therpeutically anticoagulated (8) Full code status Current Visit: Yes Status: Acute Code(s): Z78.9 - OTHER SPECIFIED HEALTH STATUS SNOMED Code(s): 598927590 Status and Disposition: Inpatient, may be able to d/c if echo reassuring, would transition to oral doac first dose here, possible d/c in the next 24 hours Will re meet with family in afternoon after echo results and discuss GOC and further onc workup, would offer CT AP here and plan for colo/mammo outpt Attending: Lelo Tovar Attestation Documenting Resident: Chrissy De La O Supervising Physician: Tatum Tovar Attestation: This service has been performed in part by a resident under the direction of a teaching physician.I, Tatum Tovar, performed the service, or was physically present during the critical, or posada portions of the service, furnished by the resident. I participated in the management of the patient.
--- NOTE | 2018-11-13 15:47 | ECHO ---
*[facility]* [place] [address] Fax #: [phone] Transthoracic Echocardiogram Patient: Yesenia Barlow : 1935 Study Date: 11/13/2018 Age: 83 Gender: F HR: 85 bpm Height: 63 in /160 cm BSA: 1.94 m^2 Weight: 200.6 lb /91.2 kg BMI: 35.6 kg/m^2 *Cardiac Catheterization Technologist: Kate Coleman RDCS *Referring Physician: * Radha VelozReading Physician: * Farhat Almendarez MD Indications: Pulmonary embolism. History: Pulmonary embolism. Risk factors: Hypertension. Diabetes mellitus. Conclusions Summary: - Left ventricle: Systolic function is normal. The estimated ejection fraction is 55-60%. Wall motion is normal; there are no regional wall motion abnormalities. - Right ventricle: The cavity size is normal. Wall thickness is normal. Systolic function is normal. - Mitral valve: There is no evidence of stenosis. There is no significant regurgitation. - Aortic valve: There is no evidence of stenosis. - Tricuspid valve: There is no significant regurgitation. - Pericardium, extracardiac: There is no pericardial effusion. - Pulmonary arteries: Systolic pressure can not be accurately estimated. Study data: Transthoracic echocardiogram. Procedure: Transthoracic echocardiography was performed. Image quality was adequate. The study was technically limited due to body habitus. Intravenous , 3 mlswas administered. Image enhancement administered by Complete 2D, spectral Doppler, and color flow Doppler. Patient status: Inpatient. Patient room number: 441-1. Rhythm: Atrial flutter. Findings Left ventricle: The cavity size is normal. Wall thickness is mildly increased. Systolic function is normal. The estimated ejection fraction is 55-60%. Wall motion is normal; there are no regional wall motion abnormalities. Left ventricular diastolic function parameters are indeterminate. Right ventricle: Poorly visualized. The cavity size is normal. Wall thickness is normal. Systolic function is normal. Ventricular septum: Well visualized. Left atrium: Poorly visualized. The atrium is normal in size. Right atrium: Poorly visualized. The atrium is normal in size. Atrial septum: The atrial septum appears aneurysmal. Mitral valve: Poorly visualized. The leaflets are normal thickness. No echocardiographic evidence for prolapse. There is no evidence of stenosis. There is no significant regurgitation. Aortic valve: Not well visualized. The valve is trileaflet. The leaflets are mildly thickened. There is no evidence of stenosis. There is no significant regurgitation. Tricuspid valve: Not well visualized. The leaflets are normal thickness. There is no significant regurgitation. Pulmonic valve: Not well visualized. The leaflets are normal thickness. There is no evidence of stenosis. There is trace to mild regurgitation. Aorta: The aorta is well visualized and normal size. The aortic root appears normal. The aortic arch appears normal. Pericardium: There is no pericardial effusion. No evidence of pleural fluid accumulation. Pulmonary arteries: Not well visualized. Systolic pressure can not be accurately estimated. Systemic veins: Not well visualized. Pulmonary veins: Visualization of the pulmonary venous anatomy is incomplete, but a significant abnormality is unlikely. Measurements Left ventricle Value Ref Aortic valve Value Ref ANTONIA, LAX (L) 3.6 cm 3.8 - 5.2 Soco diam, ED 2.1 cm ---- ESD, LAX 2.9 cm 2.2 - 3.5 Soco diam/bsa, ED 1.1 cm/m^2 ---- FS, LAX (L) 20 % 27 - 45 Peak v, S 1.12 m/sec ---- PW, ED, LAX (H) 1.3 cm 0.6 - 0.9 VTI, S 21.5 cm ---- FS (L) 20 % 27 - 45 Mean grad, S 3.0 mm Hg ---- Mid-wall FS 7 % --------- Peak grad, S 5.0 mm Hg ---- PW, ED (H) 1.3 cm 0.6 - 0.9 LVOT/AV, VTI ratio 0.57 ---- PW/ID, ED 0.35 --------- CASA, VTI 1.62 cm^2 ---- E', lat soco, TDI 27.8 cm/sec >=10.0 CASA, Vmax 1.57 cm^2 -- -- E/e', lat soco, TDI 3 --------- AR peak v 0.88 m/sec ---- E', med soco, TDI 23.3 cm/sec >=7.0 AR peak grad 3 mm Hg -- -- E/e', med soco, TDI 4 --------- E', avg, TDI 25.6 cm/sec --------- Mitral valve Value Ref E/e', avg, TDI 3 <=14 Peak E 0.89 m/sec -- -- Decel time 228 ms ---- LVOT Value Ref Peak grad, D 3.2 mm Hg ---- Diam, S 1.90 cm --------- Area 2.8 cm^2 --------- Pulmonic valve Value Ref Peak paulo, S 0.62 m/sec --------- Peak v, S 0.59 m/sec ---- VTI, S 12.3 cm --------- Peak grad, S 1.0 mm Hg ---- Mean grad, S 1 mm Hg --------- SV 35 ml --------- Aortic root Value Ref SV/bsa 18 ml/m^2 --------- Root diam 3.5 cm <4.1 Root max diam, ED 3.5 cm <4.1 Ventricular septum Value Ref IVS, ED (H) 1.1 cm 0.6 - 0.9 Aortic arch Value Ref Arch diam 2.0 cm ---- Right ventricle Value Ref ANTONIA, LAX 3.6 cm --------- Decending aorta Value Ref Jagdish peak paulo 0.53 m/sec ---- Legend: (L) and (H) caleb values outside specified reference range. Prepared and electronically signed by Farhat Almendarez MD 11/13/2018 15:47
[2018-11-13] MEDS: Apixaban* 5 MG TAB PO SCH (20:42)
[2018-11-13] MEDS: Hydrocortisone 1% CREAM* 30 GM TUBE TOPICAL SCH (23:32)
[2018-11-14] MEDS: Levothyroxine TAB* 125 MCG TAB PO SCH (05:22)
[2018-11-14 06:31] LABS: BUN/Creatinine Ratio 37.8 (8-20); Calcium 9.2 mg/dL (8.6-10.3); EGFR African American 91.1 (>60); EGFR Non-African American 75.3 (>60); Potassium 4.2 mmol/L (3.5-5.0); Troponin I 0.03 ng/mL (<0.04)
--- NOTE | 2018-11-14 06:50 | PN ---
Subjective Date of Service: 11/14/18 Interval History: 83 y/o F with cognitive impairment presented with Left leg DVT. Found to have b/ l submassive PE with no right heart strain. On eliquis. No acute event overnight. Vitals stable. NO symptoms at present. Had BM. Eating and voiding well. ambulatory spo2 was 93-95%. Objective Active Medications: Apixaban (Eliquis*) 10 mg PO BID [facility] Last Admin: 11/13/18 20:42 Dose: 10 mg Atorvastatin Calcium (Lipitor*) 10 mg PO DAILY [facility]; Protocol Last Admin: 11/13/18 08:41 Dose: 10 mg Dextrose (Dextrose 50% Vial 50 Ml*) 25 ml IV PUSH .FOR FS < 60 - SS PRN PRN Reason: FS < 60 Diltiazem HCl (Cardizem Cd Cap*) 240 mg PO DAILY [facility] Last Admin: 11/13/18 08:32 Dose: Not Given Glipizide (Glucotrol Xl*) 10 mg PO DAILY WITH MEAL [facility] Last Admin: 11/13/18 08:41 Dose: 10 mg Hydrocortisone (Hytone Cream 1%*) 1 applic TOPICAL BID [facility] Last Admin: 11/13/18 23:32 Dose: 1 applic Insulin Human Lispro (Humalog*) 0 units SUBCUT ACHS [facility]; Protocol Last Admin: 11/13/18 20:43 Dose: Not Given Levothyroxine Sodium (Synthroid Tab*) 125 mcg PO DAILY@0600 [facility] Last Admin: 11/14/18 05:22 Dose: 125 mcg Nystatin (Nystatin Top Powder*) 1 applic TOPICAL BID [facility] Last Admin: 11/13/18 20:44 Dose: 1 applic Valsartan (Diovan Tab*) 80 mg PO DAILY [facility] Last Admin: 11/13/18 08:32 Dose: Not Given Vital Signs - 8 hr 11/13/18 11/14/18 23:46 03:25 Temperature 98.0 F 98.4 F Pulse Rate 90 84 Respiratory 18 18 Rate Blood Pressure 118/77 123/72 (mmHg) O2 Sat by Pulse 94 94 Oximetry Oxygen Devices in Use Now: None Exam: Patient is lying on a bed with no any acute distress. HEENT: Nontraumatic LUngs: Clear vesicular sound heard Heart: S2/S2 heard with no any murmur. Abdomen: soft, nondistended and nontender. Normal bowel sound heard. Neuro: ALert, oriented and conscious. Moving all four extremity. EXtremity: LLE-swollen, redness and mild tenderness. Result Diagrams: 11/12/18 17:50 11/14/18 05:43 Assess/Plan/Problems-Billing Assessment: 83 y/o F with PMH of intellectual disability, T2DM, Hypothyroid, HTN presented with left leg swelling and found to have Lft leg DVT and B/L submassive PE. On Eliquis. - Patient Problems (1) Pulmonary embolism Status: Acute Code(s): I26.99 - OTHER PULMONARY EMBOLISM WITHOUT ACUTE COR PULMONALE SNOMED Code(s): 95894603 Comment: B/L submassive PE 2/2 DVT with no strain to right heart. NO O2 requirment, pt doing clinically well. No CP, palpitation and SOB. Pt is able to ambulate with walker on baseline and needs caregiver. No recent travel, immobility or trauma or major surgery.Probabaly unprovoked event. Had 51 lb weight loss in 1 year which was partly intentional. She is been taken care by her sister who states that they don't want any workup for malignancy at present. They are still deciding. Echo normal and if patient does not want workup for malignancy then can be d/c on oral ac. Now on eliquis. (2) Left leg DVT Status: Acute Code(s): I82.402 - ACUTE EMBOLISM AND THOMBOS UNSP DEEP VEINS OF L LOW EXTREM SNOMED Code(s): 328546937 Comment: Extending to left external iliac vein to posterior tibial vein. Probably unprovoked. Needs workup for any occult malignancy but patient sister doesnot want any workup; who is her HCP. Now on eliquis 5 mg. Atleast requires AC for 3 month and then upon further assessment of recurrence may require it lifelong. (3) Hypertension Status: Acute Code(s): I10 - ESSENTIAL (PRIMARY) HYPERTENSION SNOMED Code(s) : 03234808 Comment: On diltiazem and valsartan. hold med if BP < 110. (4) T2DM (type 2 diabetes mellitus) Status: Acute Comment: On glipizide and Insulin ss. (5) Hypothyroidism Status: Acute Code(s): E03.9 - HYPOTHYROIDISM, UNSPECIFIED SNOMED Code(s): 38935309 Comment: Continue levothyroxine 125 mcg. (6) DVT prophylaxis Status: Acute Code(s): Z29.9 - ENCOUNTER FOR PROPHYLACTIC MEASURES, UNSPECIFIED SNOMED Code(s): 621773115 Comment: Therpeutically anticoagulated (7) DNR (do not resuscitate) Status: Acute Comment: Molst form filled. Sister was health care proxy. Status and Disposition: Inpatient, probable d/c today. Met with family in afternoon after echo results and discuss GOC and further onc workup, would offer CT AP here and plan for colo/mammo outpt. Attending: Lelo Tovar Attestation Documenting Resident: Chrissy De La O Supervising Physician: Lelo Tovar Attestation: This service has been performed in part by a resident under the direction of a teaching physician.I, Lelo Tovar, performed the service, or was physically present during the critical, or posada portions of the service, furnished by the resident. I participated in the management of the patient.
[2018-11-14] MEDS: Insulin LISPRO* 1 UNITS UNIT SUBCUT SCH (09:05)
[2018-11-14] MEDS: Valsartan TAB* 80 MG PO SCH (09:05)
[2018-11-14] MEDS: Diltiazem CD CAP* 240 MG PO SCH (09:05)
[2018-11-14] MEDS: glipiZIDE TAB.XL* 5 MG PO SCH (09:05)
[2018-11-14] MEDS: Apixaban* 5 MG TAB PO SCH (09:06)
[2018-11-14] MEDS: Nystatin TOP POWDER* 15 GM BTL TOPICAL SCH (09:06)
[2018-11-14] MEDS: Hydrocortisone 1% CREAM* 30 GM TUBE TOPICAL SCH (09:06)
[2018-11-14] MEDS: Atorvastatin* 10 MG TAB PO SCH (09:06)
[2018-11-14 09:37] VITALS: BP 121/54
--- NOTE | 2018-11-14 11:11 | DS ---
CC: Dr. Miguel A Brandon DISCHARGE SUMMARY: DATE OF ADMISSION: 11/12/18 DATE OF DISCHARGE: 11/14/18 PRIMARY CARE PROVIDER: Dr. Miguel A Brandon. DISPOSITION AT THE TIME OF DISCHARGE: Stable, discharged to home with the patient's caregiver, Ms. Zunilda Barlow. PRIMARY DIAGNOSIS: Venous thromboembolism with left leg deep venous thrombosis and bilateral submass alejandro pulmonary embolism with no evidence of right heart strain, thought to be unprovoked. SECONDARY DIAGNOSES: 1. History of intellectual disability. 2. Vrt-rgmqeug-rqworarpf diabetes. 3. Hypothyroidism. 4. Hypertension. MEDICATIONS AT TIME OF DISCHARGE: 1. Apixaban 5 mg p.o. b.i.d. 2. Diltiazem 240 mg p.o. daily. 3. Glipizide extended release 10 mg p.o. daily. 4. Levothyroxine 125 mcg p.o. daily. 5. Nystatin topical powder b.i.d. p.r.n. 6. Pravastatin 40 mg p.o. daily. 7. Valsartan 80 mg p.o. daily. 8. Jardiance 25 mg p.o. daily. 9. Metformin 1000 mg p.o. b.i.d. 10. Torsemide 20 mg p.o. daily. Medication changes during this hospitalization are the addition of apixaban, which the patient has to lerated well during this hospitalization. HISTORY OF PRESENT ILLNESS AND HOSPITAL COURSE: An 83-year-old female with the above past medical hi story who presented to the emergency room on 11/12/18 with complaint of subacute left leg swelling ov er the course of the past week and was told by primary care provider to be evaluated after an ultraso und was pursued as an outpatient that showed DVT of the left leg with extensive clot burden. In the emergency room, the patient denied chest pain, palpitations, or shortness of breath, but she did have a CTA of the chest performed that revealed PE. The CT scan initially read possible evidence of hear t strain with troponin mildly elevated and thus, she was admitted for observation for echocardiogram and continued discussion of etiology of the patient's presumed unprovoked DVT. Her hospital course by problems is as follows: 1. New VTE and bilateral submassive PE. An echocardiogram was performed on hospital day 2 that show ed no evidence of right heart strain. Troponins trended down. The patient is without oxygen require ment. She has no chest pain. She is not short of breath. She had ambulatory oxygen saturation that revealed that she could maintain oxygen saturation on room air and likely, the patient was asymptoma tic from these findings. The etiology of an unprovoked DVT in an 83-year- old female was very concer alden for occult malignancy and this was discussed with her caregiver and healthcare power of traffic law attorney as the patient does not have the ability to make decisions for herself. Numerous discussions were h ad with family and ultimately, family elected to defer occult malignancy workup in this hospitalizati on because they felt that the patient would not want to know if she had cancer and they would not be pursuing treatment in the first place. Of note, a CTA was performed and no obvious mass or lesion wa s seen in the lung parenchyma, although this does forego a CT abdomen and pelvis which was not pursue d or done during this consultation, a colonoscopy which the patient has never had, and a mammogram wh ich should be done to rule out occult breast cancer, although as above the patient's family declined at this time and wanted to continue conversations with primary care. The patient does have a 50-poun d weight loss in the course of 1 year, which is partially intentional in the setting of getting quite keen on nutrition. It is unclear whether this is showing a harbinger of concerning occult malignanc y or not. She had a normal CBC with no obvious pro coagulopathies with normal platelets and no other concerning lab findings to suggest organ dysfunction to point towards where an occult malignancy may be. Ultimately, the patient was anticoagulated with Lovenox and then transitioned to DOAC apixaban and tolerated very well. The family understands that the patient meets criteria for lifelong anticoa gulation with an unprovoked DVT and bilateral PE and that they may pursue outpatient occult malignanc y workup as they wish. 2. Intellectual disability, unchanged and as above, conversations were held with the caregiver who t akes excellent care of this patient and has so for years. Of note, a goals of care discussion was jaun bunch given their revealing feelings on not undergoing occult malignancy workup and it is revealed that s he is DNR/DNI. A MOLST form was completed. 3. Hypothyroidism. Her Synthroid dose was continued. 4. Hypertension. Her home medications were continued. 5. Nsa-jlvqlqr-skbudyhok diabetes. The patient's home medications were continued and has fair contr ol. 6. Vital signs, which were stable during this hospitalization without changing of meds. On day of d ischarge, the patient is ambulating, voiding, tolerating apixaban with no episodes of bleeding and no complications and is stable to be discharged to home with further primary care followup. LABS AND STUDIES DONE DURING THIS CONSULTATION: Included an EKG, which showed normal sinus rhythm wi th no episode of heart strain and with no acute ischemic findings. A chest thorax CTA was performed, which showed bilateral pulmonary embolism with suggestion of right heart strain on CT, which was lat er nullified by an echocardiogram done on 11/13/18 which is a more sensitive study for right heart st rain in the setting of submassive PE, which showed no right heart strain and normal ejection fraction and no diastolic dysfunction and normal valves. Labs done during this hospitalization included a CBC, which showed white blood cell count of 6.9, hem oglobin 13.3, hematocrit 40, and platelets of 104. BMP done on the day of discharge includes sodium 141, potassium 4.2, carbon dioxide 25, BUN 28, creatinine 0.7, glucose 124. Troponin is 0.03. Liver function testing was normal. ITEMS TO FOLLOW UP ON STATUS POST DISCHARGE: 1. New unprovoked DVT. The utility of a hypercoagulable workup in the setting is likely low. Given she presented with new left lower extremity DVT and bilateral PEs as an 83-year-old, it is possible that the patient is less active than we anticipated. She reports her baseline activities of daily li ving include being able to walk with a walker and that she is actually quite active around the house, although this may be over-represented by the patient and her caregiver and so, there is the outstand ing possibility that this is provoked. Nonetheless, new DVTs and PEs in an 83-year-old would prompt an occult malignancy workup, of which the patient and her family have declined reasonably and would l harley to continue to have conversations with primary care about what that would entail as they do not f eel the patient would be able to complete a prep for colonoscopy or would even want to be aware of te sting such as CT abdomen and pelvis and mammography, which would need to be done to complete this mal ignancy workup. Of note, the patient has had negative mammograms in the past and has no outstanding lab findings other than mild thrombocytopenia, which can be followed in the primary care setting. 2. Mild thrombocytopenia. This is an incidental finding with platelets at 100 in the setting of gaudencio dying low molecular weight heparin as well as apixaban, which could be med related. She certainly is not in a hypercoagulable state with thrombocytosis and is not at a critical level. Her platelets sh ould be rechecked in the next 2 to 3 weeks. TIME SPENT: Forty-five minutes were spent in the planning of this discharge, over half of that was s pent directly at the bedside with the patient, providing direct patient care, counseling patient and her family. They are comfortable with returning the patient to home and have no further questions on planning. She should follow up with Dr. Brandon to check platelets and continue discussion of the me rits of an occult malignancy workup in the setting of a new unprovoked, though possibly provoked, DVT in an 83-year-old female. Of note, code status is changed to DNR/DNI and the MOLST form is complete d accordingly. If there are any questions about the care of this patient during this hospitalization, please do not hesitate to reach out and contact me directly. My cell phone is [phone]. This medical discharg e summary is parts sales representative of an entire medical chart and is a summary of the care provided. For fu rther details, the medical chart could be accessed directly. A physical exam was done on the day of discharge and can be found in the progress note. [id number]/[facility] #: [id number]
== END 2018-11-14 11:19 | disposition home health service (06) | DRG 176 ==
LOC: ED 16:27 → MEDTELE 21:12
PROVIDERS: ADMIT Internal Medicine; ATTEND Internal Medicine
DX: I26.99 Other pulmonary embolism without acute cor pulmonale (principal); I82.402 Acute embolism and thrombosis of unspecified deep veins of left lower extremity; I82.422 Acute embolism and thrombosis of left iliac vein; I82.442 Acute embolism and thrombosis of left tibial vein; I48.92 Unspecified atrial flutter; F79 Unspecified intellectual disabilities; I10 Essential (primary) hypertension; E03.9 Hypothyroidism, unspecified; Z66 Do not resuscitate; D69.6 Thrombocytopenia, unspecified; M19.90 Unspecified osteoarthritis, unspecified site; K21.9 Gastro-esophageal reflux disease without esophagitis; Z96.641 Presence of right artificial hip joint; Z96.652 Presence of left artificial knee joint; E66.9 Obesity, unspecified; E78.5 Hyperlipidemia, unspecified; E78.00 Pure hypercholesterolemia, unspecified; E11.40 Type 2 diabetes mellitus with diabetic neuropathy, unspecified; Z79.01 Long term (current) use of anticoagulants; Z79.84 Long term (current) use of oral hypoglycemic drugs; Z90.49 Acquired absence of other specified parts of digestive tract; Z98.41 Cataract extraction status, right eye; Z98.42 Cataract extraction status, left eye; Z68.35 Body mass index [BMI] 35.0-35.9, adult; Z88.6 Allergy status to analgesic agent; Z88.8 Allergy status to other drugs, medicaments and biological substances; Z91.030 Bee allergy status; Z83.518 Family history of other specified eye disorder
CPT/HCPCS: 36415; 71275; 80048; 80053; 83880; 84484; 85025; 85610; 86140; 93005; 93306; 99284; A9270-GY; C8929; J1650; Q9967

== ENCOUNTER 2019-05-11 09:51 | Emergency (ER) | payer MEDICAID, MEDICARE ==
--- OUTSIDE RECORDS SUMMARY | 2019-05-11 09:59 | XMS REPORT | Summary of Care ---
:1935 Author Organization [facility] Address [address] [facility] [place] [address] Care Team Providers Name Role Phone Miguel A Brandon Primary Care Provider Reason for Visit Reason Comments Follow Up RTH Encounter Details Date Type Department Care Team Description 03/14/2019 Office Visit [facility] - Nico Rosenberg, History of total [place] right hip replacement [address] [facility] (Primary Dx) [address] [place] [address] [place] [address] Allergies Active Allergy Reactions Severity Noted Date Comments Aspirin Rash 08/20/2013 Bee Hives 09/02/2013 Demerol HIVES Hydrochlorothiazide HIVES Ibuprofen HIVES Lisinopril HIVES Nsaids Rash Low 03/29/2010 documented as of this encounter (statuses as of 03/14/2019) Medications Medication Sig Dispensed Refills Start Date End Date Status triamcinolone Apply to legs 80 g 5 01/05/2018 Active (KENALOG) 0.1 % Apply twice daily externally Ointment triamcinolone apply to affected 454 Each 5 02/07/2018 Active (KENALOG,ARISTOCORT) area twice a day 0.1 % Apply externally Cream Ibuprofen 200 MG Oral Take 400 mg by 0 Active Cap mouth DAILY NEEDED. glipiZIDE (GLUCOTROL Take 1 Tab by 90 Tab 3 02/13/2018 Active XL) 10 MG Oral TABLET mouth DAILY. SR 24 HR levothyroxine take 1 tablet by 90 Tab 3 04/03/2018 Active (SYNTHROID) 125 MCG mouth once daily Oral Tab pravastatin take 1 tablet by 90 Tab 3 04/05/2018 Active (PRAVACHOL) 40 MG Oral mouth once daily Tab torsemide (DEMADEX) 20 Take 1 Tab by 90 Tab 3 05/25/2018 Active MG Oral mouth DAILY. TabIndications: Leg edema, left metFORMIN HCL 1000 MG take 1 tablet by 180 Tab 3 07/09/2018 Active Oral Tab mouth twice a day with meals valsartan (DIOVAN) 80 TAKE 1 TABLET BY 90 Tab 3 09/10/2018 Active MG Oral Tab MOUTH ONCE DAILY Nystatin 782926 2 g by Apply 320 g 3 11/09/2018 Active UNIT/GM Apply externally route externally Powder TWICE DAILY. Apply to affected areas apixaban (ELIQUIS Take 1 Tab by 180 Tab 4 11/22/2018 Active STARTER PACK) 5 MG mouth TWICE DAILY. Oral Tab diltiazem (CARDIZEM Take 1 Cap by 90 Cap 3 12/05/2018 Active CD) 240 MG Oral mouth DAILY. CAPSULE SR 24 HRIndications: Hypertension JARDIANCE 25 MG Oral Take 25 mg by 3 01/11/2019 Active Tab mouth WITH BREAKFAST DAILY. documented as of this encounter (statuses as of 03/14/2019) Active Problems Problem Noted Date Hammertoe, bilateral [...] long-term current use of insulin Overview: Sees vegetable washing machine operator regularly for nail care and hammertoes. Needs diabetic shoes from [employer]. Mild intellectual disabilities 09/05/1995 Mixed hyperlipidemia 09/05/1995 Extreme obesity 09/05/1995 documented as of this encounter (statuses as of 03/14/2019) Resolved Problems Problem Noted Date Resolved Date [...] MRI left knee-tear of mensicus-Dr Golden Munguia documented as of this encounter (statuses as of 03/14/2019) Immunizations Name Administration Dates Next Due Influenza (IM) Preservative Free 01/04/2018, 12/25/2017, 12/25/2013, 12/25/2013, 03/13/2013, 01/18/2012, 12/30/2009, 12/25/2008, 12/13/2007 Influenza Vaccine High Dose 01/04/2019, 12/05/2014 Influenza Vaccine Whole 12/26/2006 PNEUMOCOCCAL POLYSACCHARIDE VACCINE 12/25/2017, 12/26/2006 Pneumococcal Conjugate Vaccine 01/05/2014 documented as [...] Sign Reading Time Taken Comments Blood Pressure - - Pulse - - Temperature - - Respiratory Rate 16 03/14/2019 1:36 PM EST Oxygen Saturation - - Inhaled Oxygen Concentration - - Weight 99.8 kg (220 lb) 03/14/2019 1:36 PM EST Height 157.5 cm (5' 2") 03/14/2019 1:36 PM EST Body Mass Index 40.24 03/14/2019 1:36 PM EST documented in this encounter Progress Notes Nico Rosenberg MD - 03/14/2019 1:15 PM EST PATIENT: Yesenia Barlow : 1935 DATE OF SERVICE: 03/14/2019 SUBJECTIVE: Yesenia Barlow is a 83-y.o. female. 5 years status post right total hip arthroplasty. Doing well, no acute issues OBJECTIVE: Resp 16 | Ht 5' 2" (1.575 m) | Wt 220 lb (99.8 kg) | BMI 40.24 kg/m Incision well healed. No peritroch tenderness. Range of motion Flexion 0-90, ir -15, er-35, abd-35, add-15. Limb lengths grossly equal. Trendelenburg negative. Distal ext neuro intact. X-rays show well aligned cementless total hip arthroplasty , no evidence of loosening ASSESSMENT: ICD-9-CM ICD-10-CM 1. History of total right hip replacement V43.64 Z96.641 XR HIP 3 VIEWS UNILAT W /PELVIS RIGHT PLAN: Activity as tolerated Follow up in 5 years Author: Nico Rosenberg MD 03/14/2019 13:39 Portions of this note were made with voice recognition software documented in this encounter Plan of Treatment Date Type Specialty Care Team Description 05/01/2019 Lab Internal Medicine 05/08/2019 Office Visit Internal Medicine Miguel A Brandon MD [address] [place] [address] [phone] Name Type Priority Associated Diagnoses Date/Time XR HIP 3 VIEWS Imaging Routine History of total right 03/14/2019 1:31 PM EST UNILAT W/PELVIS hip replacement RIGHT Name Type Priority Associated Diagnoses Order Schedule XR HIP 3 VIEWS UNILAT Imaging Routine History of total right Expected: 10/2019, W/PELVIS RIGHT hip replacement Expires: 03/13/2020 Health Maintenance Due Date Last Done Comments MEDICARE ANNUAL WELLNESS 1935 VISIT DTaP/Tdap/Td Vaccines (1 - 1948 Tdap) HIV SCREENING 1952 ZOSTER IMMUNIZATION SERIES 1987 (1 of 2) FALL RISK ASSESSMENT 2002 Diabetic Eye Exam 06/16/2016 06/17/2015 (Previously completed) FOOT EXAM 10/11/2017 10/11/2016, 10/11/2016, 08/28/2015, Additional history exists HEMOGLOBIN A1C 04/23/2019 01/21/2019, 10/17/2018, 07/14/2018, Additional history exists DEPRESSION SCREENING 01/30/2020 01/29/2019 PNEUMOCOCCAL 65+YRS Completed 12/25/2017, 01/05/2014, 12/26/2006 INFLUENZA VACCINE Completed 01/04/2019, 01/04/2018, 12/25/2017, Additional history exists HEPATITIS A IMMUNIZATION Aged Out No longer eligible SERIES based on patient's age to complete this topic HPV IMMUNIZATION SERIES Aged Out No longer eligible based on patient's age to complete this topic MENINGOCOCCAL VACCINE IMM Aged Out No longer eligible based on patient's age to complete this topic documented as of this encounter Goals Goal Patient Goal Associated Recent Patient-Stated? Author Type Problems Progress Blood Pressure Blood Pressure 98/60 No Roma, < 140/90 (01/29/2019 Miguel A Adair, 10:53 AM EST) Note: This is an individualized treatment (blood pressure) goal for Yesenia Barlow: Displayed above (on the left) is your goal for blood pressure control. Your most recent blood pressure is also shown above, on the right. You should try to achieve blood pressures that are lower than your goal listed above (on the left). Glycohemoglobin A1c < 7.0 Diabetes 7.5 (01/21/2019 9:04 AM Miguel A Morrow, EST) Note: This is an individualized treatment (diabetes control, HgbA1C) goal for Yesenia Barlow: Displayed above is your progress towards your HgbA1C goal. Your goal is shown above (on the left); your most recent HgbA1C is shown on the right. Note that lower numbers are better. Weight loss vs. 18 mo Lifestyle 36.2 (03/14/2019 1:36 PM Miguel A Morrow MD max (lbs) >= 10 EST) Note: This is an individualized lifestyle goal [...] of this encounter Implants Implanted Type Area Boatbuilder Wood Device Shelf Model / Serial Identifier Expiration Date / Lot Regenerex/[employer] Hole Cup Size 54 - [id number] Right: BIOMET 2022 [id number] / Implanted: Qty: 1 on 09/02/2013 by Nico Rosenberg MD at [facility] Hip / [id number] Neutral Arcomxl Liner - 36f - [id number] Right: BIOMET 12/04/2017 [id number] / Implanted: Qty: 1 on 09/02/2013 by Nico Rosenberg MD at [facility] Hip / [id number] Femoral Porous Stem Right: 08/04/2022 [id number] / Implanted: Qty: 1 on 09/02/2013 by Nico Rosenberg MD at [facility] Hip / [id number] 36mm Femoral Head Size Std - [id number] Right: BIOMET 06/05/2023 11- [id number] / Implanted: Qty: 1 on 09/02/2013 by Nico Rosenberg MD at [facility] Hip / documented as of this encounter Results Not on filedocumented in this encounter Visit Diagnoses Diagnosis History of total right hip replacement documented in this encounter (Home) [place], [place] [phone] (Work) documented as of this encounter Advance Directives Type Date Recorded Patient Stem Cutter Explanation Advance Directives 12/14/2018 12:42 PM MOLST ORDERS
--- OUTSIDE RECORDS SUMMARY | 2019-05-11 09:59 | XMS REPORT | Summary of Care ---
:1935 Author Organization [facility] Address [address] [place] [address] Care Team Providers Name Role Phone Miguel A Brandon Primary Care Provider Reason for Visit Reason Comments Medication Check Annual medication check in. Diabetes Follow up. Last A1C was 7.7 on 05/01/2019. Encounter Details Date Type Department Care Team Description 05/08/2019 Office Visit [facility] Miguel A Brandon, Controlled type 2 diabetes mellitus without complication, without long-term current use of insulin (HCC) (Primary Dx); Medicine Essential hypertension; [address] [facility] [address] [facility] Other specified hypothyroidism; [place] [address] Mixed hyperlipidemia; [phone] Extreme obesity Allergies Active Allergy Reactions Severity Noted Date Comments Aspirin Rash 08/20/2013 Bee Hives 09/02/2013 Demerol HIVES Hydrochlorothiazide HIVES Ibuprofen HIVES Lisinopril HIVES Nsaids Rash Low 03/29/2010 documented as of this encounter (statuses as of 05/08/2019) Medications Medication Sig Dispensed Refills Start Date End Date Status triamcinolone Apply to legs 80 g 5 01/05/2018 Active (KENALOG) 0.1 % Apply twice daily externally Ointment triamcinolone apply to affected 454 Each 5 02/07/2018 Active (KENALOG,ARISTOCORT) area twice a day 0.1 % Apply externally Cream Ibuprofen 200 MG Oral Take 400 mg by 0 Active Cap mouth DAILY NEEDED. pravastatin take 1 tablet by 90 Tab [...] MG Oral Tab MOUTH ONCE DAILY Nystatin 536415 2 g by Apply 320 g 3 [...] 01/11/2019 Active Tab mouth WITH BREAKFAST DAILY. levothyroxine TAKE 1 TABLET BY 90 Tab 3 03/19/2019 Active (SYNTHROID) 125 MCG MOUTH ONCE DAILY Oral Tab glipiZIDE (GLUCOTROL TAKE 1 TABLET BY 90 Tab 3 03/19/2019 Active XL) 10 MG Oral TABLET MOUTH ONCE DAILY SR 24 HR documented as of this encounter (statuses as of 05/08/2019) Active Problems Problem Noted Date Hammertoe, bilateral [...] long-term current use of insulin Overview: Sees buggy man regularly for nail care and hammertoes. Needs diabetic shoes from [employer]. Mild intellectual disabilities 09/05/1995 Mixed hyperlipidemia 09/05/1995 Extreme obesity 09/05/1995 documented as of this encounter (statuses as of 05/08/2019) Resolved Problems Problem Noted Date Resolved Date [...] as of this encounter (statuses as of 05/08/2019) Immunizations Name Administration Dates Next Due Influenza [...] Assigned at Date Recorded Not on file documented as of this encounter Last Filed Vital Signs Vital Sign Reading Time Taken Comments Blood Pressure 128/70 05/08/2019 10:01 AM EST Pulse 72 05/08/2019 10:01 AM EST Temperature - - Respiratory Rate - - Oxygen Saturation 97% 05/08/2019 10:01 AM EST Inhaled Oxygen Concentration - - Weight 101.6 kg (224 lb) 05/08/2019 10:01 AM EST Height 157.5 cm (5' 2") 05/08/2019 10:01 AM EST Body Mass Index 40.97 05/08/2019 10:01 AM EST documented in this encounter Patient Instructions Patient InstructionsMiguel A Brandon MD - 05/08/2019 10:00 AM ESTDiabetes mellitus at acceptable goal Diabetes mellitus blood work three month and follow up me or Alex LY 3.5 month Blood pressure and cholesterol are fine continue current medications Get yearly diabetes mellitus eye exam [place] documented in this encounter Progress Notes Miguel A Brandon MD - 05/08/2019 10:00 AM EST PATIENT: Yesenia Barlow : 1935 DATE OF SERVICE: 05/08/2019 CHIEF COMPLAINT: Chief Complaint Patient presents with ? Medication Check Annual medication check in. ? Diabetes Follow up. Last A1C was 7.7 on 05/01/2019. Subjective HISTORY OF PRESENT ILLNESS: Yesenia Barlow is a 84-y.o. female. HPI Here with sister who cares for her No new issues sister looks at her feet daily and patient sees podiatry she has hammertoe and osteoarthritis of feet She denies neuropathy Or eye or cardiovascular symptoms Lab Results Component Value Date GLYCO 7.7 (H) 05/01/2019 [id number] cayuga 05/02/2017 [id number] CMC 7.8 05/02/2017 no hypoglycemia symptoms Patient Active Problem List Diagnosis ? Other specified hypothyroidism ? Essential hypertension ? Controlled type 2 diabetes mellitus without complication, without long- term current use of insulin (HCC) ? Mild intellectual disabilities ? Mixed hyperlipidemia ? Extreme obesity ? Hip arthritis ? Knee pain, right ? Osteoarthritis of hip ? S/P total hip arthroplasty ? History of total right hip replacement ? Primary osteoarthritis of right knee ? S/P ankle fusion ? Hammertoe, bilateral Family History Problem Relation Age of Onset ? Cancer Mother LUNG ? Heart Father ? Breast Cancer Other Current Outpatient Medications Medication Sig ? apixaban (ELIQUIS STARTER PACK) 5 MG Oral Tab Take 1 Tab by mouth TWICE DAILY. ? diltiazem (CARDIZEM CD) 240 MG Oral CAPSULE SR 24 HR Take 1 Cap by mouth DAILY. ? glipiZIDE (GLUCOTROL XL) 10 MG Oral TABLET SR 24 HR TAKE 1 TABLET BY MOUTH ONCE DAILY ? Ibuprofen 200 MG Oral Cap Take 400 mg by mouth DAILY NEEDED. ? JARDIANCE 25 MG Oral Tab Take 25 mg by mouth WITH BREAKFAST DAILY. ? levothyroxine (SYNTHROID) 125 MCG Oral Tab TAKE 1 TABLET BY MOUTH ONCE DAILY ? metFORMIN HCL 1000 MG Oral Tab take 1 tablet by mouth twice a day with meals ? Nystatin 320315 UNIT/GM Apply externally Powder 2 g by Apply externally route TWICE DAILY. Apply to affected areas ? pravastatin (PRAVACHOL) 40 MG Oral Tab take 1 tablet by mouth once daily ? torsemide (DEMADEX) 20 MG Oral Tab Take 1 Tab by mouth DAILY. ? triamcinolone (KENALOG) 0.1 % Apply externally Ointment Apply to legs twice daily ? triamcinolone (KENALOG,ARISTOCORT) 0.1 % Apply externally Cream apply to affected area twicea day ? valsartan (DIOVAN) 80 MG Oral Tab TAKE 1 TABLET BY MOUTH ONCE DAILY No current facility-administered medications for this visit. Allergies Allergen Reactions ? Aspirin Rash ? Bee Hives ? Demerol HIVES ? Hctz [Hydrochlorothiazide] HIVES ? Ibuprofen HIVES ? Lisinopril HIVES ? Nsaids Rash Social History Socioeconomic History ? Marital status: Single Spouse name: Not on file ? Number of children: Not on file ? Years of education: Not on file ? Highest education level: Not on file Occupational History ? Not on file Social Needs ? Financial resource strain: Not on file ? Food insecurity Worry: Not on file Inability: Not on file ? Transportation needs Medical: Not on file Non-medical: Not on file Tobacco Use ? Smoking status: Never Smoker ? Smokeless tobacco: Never Used Substance and Sexual Activity ? Alcohol use: No ? Drug use: No ? Sexual activity: Not on file Lifestyle ? Physical activity Days per week: Not on file Minutes per session: Not on file ? Stress: Not on file Relationships ? Social connections Talks on phone: Not on file Gets together: Not on file Attends congregational service: Not on file Active member of club or organization: Not on file Attends meetings of clubs or organizations: Not on file Relationship status: Not on file ? Intimate partner violence Fear of current or ex partner: Not on file Emotionally abused: Not on file Physically abused: Not on file Forced sexual activity: Not on file Other Topics Concern ? Back Care Not Asked ? Bike Helmet Not Asked ? Blood Transfusions Not Asked ? Caffeine Concern Yes Comment: 1-2 CUPS COFFEE DAILY ? Exercise No ? Hobby Hazards Not Asked ? International Travel Not Asked ? Service Not Asked ? Occupational Exposure Not Asked ? Seat Belt Not Asked ? Self-Exams Not Asked ? Sleep Concern Not Asked ? Special Diet Yes Comment: low carbo and sodium ? Stress Concern No ? Weight Concern Not Asked Social History Narrative Lives with sister in [place] Does not work ROS no gastro-intestinal or genito-urinary symptoms Objective PHYSICAL EXAM: VITALS: BP 128/70 | Pulse 72 | Ht 5' 2" (1.575 m) | Wt 224 lb (101.6 kg) | SpO2 97% | BMI 40.97 kg/m Body mass index is 40.97 kg/m. Physical Exam S1 and S2 normal, no murmurs, clicks, gallops or rubs. Regular rate and rhythm. Chest is clear; nowheezes or rales. No edema or JVD. Left foot diabetic exam: Visual exam. Foot appears normal without wounds or signs of infection: Yes hammertoe deformity 2-3toes Sensory exam. Patient can feel the monofilament on the foot: yes Pulse exam. A pulse is palpable at either the foot or ankle: yes Right foot diabetic exam: Visual exam. Foot appears normal without wounds or signs of infection: yes Sensory exam. Patient can feel the monofilament on the foot: yes Pulse exam. A pulse is palpable at either the foot or ankle: yes ASSESSMENT / IMPRESSION: ICD-9-CM ICD-10-CM 1. Controlled type 2 diabetes mellitus without complication, without long-term current use of insulin (HCC) continue current medications goal hemoglobin A1C 8 % or less 250.00 E11.9 2. Essential hypertension at goal continue current medications 401.9 I10 3. Other specified hypothyroidism 244.8 E03.8 4. Mixed hyperlipidemia continue current medications 272.2 E78.2 5. Extreme obesity 278.00 E66.8 Patient Instructions Diabetes mellitus at acceptable goal Diabetes mellitus blood work three month and follow up me or Alex LY 3.5 month Blood pressure and cholesterol are fine continue current medications Get yearly diabetes mellitus eye exam Dr.Robert Margarette Brandon MD 05/08/2019 12:03 documented in this encounter Plan of Treatment Date Type Specialty Care Team Description 08/01/2019 Lab Internal Medicine 08/08/2019 Office Visit Internal Medicine Jarrell Ingram, [place] [address] [place] [address] [phone] Health Maintenance Due Date Last Done Comments MEDICARE ANNUAL WELLNESS 1935 VISIT DTaP/Tdap/Td Vaccines (1 - 1948 Tdap) HIV SCREENING 1952 ZOSTER IMMUNIZATION SERIES 1987 (1 of 2) Diabetic Eye Exam 06/16/2016 06/17/2015 (Previously completed) FOOT EXAM 10/11/2017 10/11/2016, 10/11/2016, 08/28/2015, Additional history exists HEMOGLOBIN A1C 07/30/2019 05/01/2019, 01/21/2019, 10/17/2018, Additional history exists DEPRESSION SCREENING 01/30/2020 01/29/2019 FALL RISK ASSESSMENT 05/07/2020 05/08/2019, 05/08/2019 PNEUMOCOCCAL 65+YRS Completed 12/25/2017, 01/05/2014, 12/26/2006 INFLUENZA [...] Type Problems Progress Blood Pressure Blood Pressure 128/70 No Roma, < 140/90 (05/08/2019 Miguel A Adair, 10:01 AM EST) Note: This is an individualized treatment (blood pressure) goal for Yesenia Barlow: Displayed above (on the left) is your goal for blood pressure control. Your most recent blood pressure is also shown above, on the right. You should try to achieve blood pressures that are lower than your goal listed above (on the left). Glycohemoglobin A1c < 7.0 Diabetes 7.7 (05/01/2019 9:06 AM Miguel A Morrow, EST) Note: This is an individualized treatment (diabetes control, HgbA1C) goal for Yesenia Barlow: Displayed above is your progress towards your HgbA1C goal. Your goal is shown above (on the left); your most recent HgbA1C is shown on the right. Note that lower numbers are better. Weight loss vs. 18 mo Lifestyle 32.2 (05/08/2019 10:01 AM Miguel A Morrow MD max (lbs) [...] of this encounter Implants Implanted Type Area Rubber Goods Tester Water Device Shelf Model / Serial Identifier Expiration Date / Lot [employer] Hole Cup Size 54 - [id number] Right: BIOMET 2022 [id number] / Implanted: Qty: 1 on 09/02/2013 by Nico Rosenberg MD at [facility] / [id number] Neutral Arcomxl Liner - 36f - [id number] Right: BIOMET 12/04/2017 [id number] / Implanted: Qty: 1 on 09/02/2013 by Nico Rosenberg MD at [facility] Hip / [id number] Femoral Porous Stem Right: 08/04/2022 [id number] / Implanted: Qty: 1 on 09/02/2013 by Nico Rosenberg MD at [facility] Hip / [id number] 36mm Femoral Head Size Std - [id number] Right: BIOMET 06/05/2023 11- [id number] / Implanted: Qty: 1 on 09/02/2013 by Nico Rosenberg MD at [facility] Hip / documented as of this encounter Results Not on filedocumented in this encounter Visit Diagnoses Diagnosis Controlled type 2 diabetes mellitus without complication, without long-term current use of insulin (HCC) Essential hypertension Unspecified essential hypertension Other specified hypothyroidism Mixed hyperlipidemia Extreme obesity Morbid obesity documented in this encounter (Home) [place], [place] [phone] (Work) documented as of this encounter Advance Directives Type Date Recorded Patient Diesel Engine Mechanic Explanation Advance Directives 12/14/2018 12:42 PM MOLST ORDERS
== END 2019-05-11 10:00 | disposition left against medical advice (07) ==
LOC: UCEAST 09:51
DX: Z53.21 Procedure and treatment not carried out due to patient leaving prior to being seen by health care provider (principal)

== ENCOUNTER 2019-05-11 10:21 | Emergency (ER) | payer MEDICARE, MEDICAID ==
[2019-05-11] MEDS ORDERED: NS 0.9% 1000 ML** 1,000 ML IV ONE (11:19)
[2019-05-11 11:30] LABS: Urine Appearance Clear; Urine Bilirubin Negative (Negative); Urine Blood Negative (Negative); Urine Color Yellow; Urine Glucose 3+(>=500 mg/dL) (Negative); Urine Ketones Negative (Negative); Urine Nitrite Negative (Negative); Urine Protein Negative (Negative); Urine Specific Gravity 1.025 (1.010-1.030); Urine Urobilinogen Negative (Negative)
[2019-05-11 11:35] LABS: ABS Monocytes 0.4 10^3/ul (0-0.8); ABS Neutrophils 4.5 10^3/ul (1.5-7.7); Eosinophil % 0.7 %; Hematocrit 47 % (35-47); Hemoglobin 15.5 g/dL (12.0-16.0); Lymphocyte % 17.2 %; Mean Corpuscular HGB Conc 33 g/dL (31-36); Mean Corpuscular Hemoglobin 31 pg (27-31); Mean Corpuscular Volume 94 fL (80-97); Mean Platelet Volume 7.3 fL (7.4-10.4); Platelet Count 196 10^3/uL (150-450); Red Blood Count 4.93 10^6 /uL (3.70-4.87); Red Cell Distribution Width 15 % (10-15)
[2019-05-11 11:53] LABS: Albumin 3.9 g/dL (3.2-5.2); Albumin/Globulin Ratio 1.3 (1-3); BUN/Creatinine Ratio 26.5 (8-20); C Reactive Protein 3.55 mg/L (<8.01); Calcium 9.8 mg/dL (8.6-10.3); EGFR African American 65.7 (>60); EGFR Non-African American 54.3 (>60); Globulin 3.1 g/dL (2-4); Magnesium 2.1 mg/dL (1.9-2.7); Potassium 4.5 mmol/L (3.5-5.0); Total Bilirubin 0.5 mg/dL (0.2-1.0)
--- NOTE | 2019-05-11 13:13 | ED ---
Back Pain - HPI Summary HPI Summary: This patient is an 84-year-old female with a hx of cognitive impairment presenting to the ED with R flank pain radiating to the RLQ. States sxs have been present 2 days. Patient has been denying any urinary symptoms. She does have chronic back pain and has been seen by physical therapy. She also has had a left leg DVT and was recently started on Eliquis as well as Diprovan. Denies hematuria. Patient denies fevers, sweats, or chills. Denies any weakness. Pain is worse at night and states she cannot get comfortable. Sister is medicaid service coordinator and at bedside. - History of Current Complaint Chief Complaint: EDFlankPain Stated Complaint: POSS KIDNEY INFECTION PER PT Time Seen by Provider: 05/11/19 10:31 Hx Obtained From: Patient Onset/Duration: Gradual Onset Onset/Duration: Started Hours Ago Timing: Constant Back Pain Location: Is Discrete @ - right flank with radiation to the RLQ Pain Intensity: 8 Pain Scale Used: 0-10 Numeric Character: Aching Alleviating Symptom(s): Rest, Position Associated Signs And Symptoms: Positive: Flank Pain. Negative: Swelling, Redness, Bruising, Bladder Incontinence, Bowel Incontinence - Allergies/Home Medications Allergies/Adverse Reactions: Allergies Allergy/AdvReac Type Severity Reaction Status Date / Time aspirin Allergy Intermediate Rash Verified 05/11/19 10:29 ibuprofen Allergy Intermediate Hives Verified 05/11/19 10:29 NSAIDS (Non-Steroidal Allergy Mild Rash Verified 05/11/19 10:29 Anti-Inflamma hydrochlorothiazide Allergy Unknown Hives Verified 05/11/19 10:29 lisinopril Allergy Unknown Hives Verified 05/11/19 10:29 meperidine Allergy Unknown Hives Verified 05/11/19 10:29 BEES Allergy Unknown Swelling Uncoded 11/12/18 22:50 Home Medications: Home Medications Diltiazem CD CAP* [Cardizem CD CAP*] 240 mg PO DAILY 09/25/17 [History Confirmed 11/12/18] Levothyroxine TAB* [Synthroid 125 MCG TAB*] 125 mcg PO DAILY 09/25/17 [History Confirmed 11/12/18] Pravastatin (NF) [Pravachol (NF)] 40 mg PO DAILY 09/25/17 [History Confirmed 11/22] glipiZIDE TAB.XL* [Glucotrol Xl*] 10 mg PO DAILY 09/25/17 [History Confirmed 11/22] metFORMIN* [Glucophage 1000 MG TAB *] 1,000 mg PO BID WITH MEALS 09/25/17 [ History Confirmed 11/12/18] Empaglifozin (NF) [Jardiance] 25 mg PO DAILY 11/12/18 [History Confirmed ] Nystatin TOP POWDER* 1 applic TOPICAL BID 11/12/18 [History Confirmed 11/12/18] Torsemide TAB* [Demadex 20 MG*] 20 mg PO DAILY 11/12/18 [History Confirmed 11/12] Valsartan TAB* [Diovan TAB*] 80 mg PO DAILY 11/12/18 [History Confirmed 11/12/18 ] Apixaban* [Eliquis*] 5 mg PO BID #60 tab 11/14/18 [Rx] traMADol TAB* [Ultram*] 50 mg PO Q8H PRN #15 tab MDD 3 05/11/19 [Rx] PMH/Surg Hx/FS Hx/Imm Hx Previously Healthy: Yes Endocrine/Hematology History: Reports: 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, Hx Thyroid Disease Cardiovascular History: Reports: Hx Deep Vein Thrombosis, Hx Hypercholesterolemia, Hx Hypertension Denies: Hx Pacemaker/ICD, Other Cardiovascular Problems/Disorders Respiratory History: Reports: Hx Seasonal Allergies GI History: Reports: Hx Gastroesophageal Reflux Disease History: Denies: Hx Renal Disease Musculoskeletal History: Reports: Hx Arthritis - BRACE AFO RIGHT LEG, Hx Back Problems, Other Musculoskeletal History - low back pain Sensory History: Reports: Hx Cataracts - JOAQUIN, Hx Contacts or Glasses - glasses, Other Sensory Impairments - mild mental retardation Denies: Hx Hearing Aid Opthamlomology History: Reports: Hx Cataracts - JOAQUIN, Hx Contacts or Glasses - glasses, Other Sensory Impairments - mild mental retardation Neurological History: Reports: Hx Developmental Delay, Other Neuro Impairments/ Disorders - 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 cholecystectomy. left TKR Hx Anesthesia Reactions: No - Immunization History Hx Pertussis Vaccination: No Immunizations Up to Date: Yes Infectious Disease History: No Infectious Disease History: Denies: Traveled Outside the [place] in Last 30 Days - Family History Known Family History: Positive: Other - Mother and two sisters have cataracts - Social History Occupation: Unemployed Lives: With Family Alcohol Use: None Hx Substance Use: No Substance Use Type: Reports: None Hx Tobacco Use: No Smoking Status (MU): Never Smoked Tobacco Have You Smoked in the Last Year: No Review of Systems Negative: Fever, Chills, Fatigue, Skin Diaphoresis Negative: Palpitations, Chest Pain Negative: Shortness Of Breath, Cough Positive: no symptoms reported, see HPI, flank pain - R flank pain Negative: Arthralgia, Myalgia Negative: Anxious, Depressed All Other Systems Reviewed And Are Negative: Yes Physical Exam Triage Information Reviewed: Yes Vital Signs On Initial Exam: Initial Vitals Temp Pulse Resp BP Pulse Ox 96.3 F 70 18 132/65 97 05/11/19 10:24 05/11/19 10:24 05/11/19 10:24 05/11/19 10:24 05/11/19 10:24 Vital Signs Reviewed: Yes Appearance: Positive: Well-Appearing, Well-Nourished Skin: Positive: Warm, Skin Color Reflects Adequate Perfusion Head/Face: Positive: Normal Head/Face Inspection Eyes: Positive: EOMI, FLAKITA, Conjunctiva Clear Neck: Positive: Supple, No Lymphadenopathy Respiratory/Lung Sounds: Positive: Clear to Auscultation, Breath Sounds Present Cardiovascular: Positive: RRR, Pulses are Symmetrical in both Upper and Lower Extremities Abdomen Description: Positive: No Organomegaly, CVA Tenderness (R), Other: - RLQ pain Bowel Sounds: Positive: Present Musculoskeletal: Positive: Normal, Strength/ROM Intact Neurological: Positive: Sensory/Motor Intact, Alert, Oriented to Person Place, Time Psychiatric: Positive: Normal, Affect/Mood Appropriate AVPU Assessment: Alert Procedures - Sedation Patient Received Moderate/Deep Sedation with Procedure: No Diagnostics - Vital Signs Vital Signs Temp Pulse Resp BP Pulse Ox 05/11/19 10:24 96.3 F 70 18 132/65 97 - Laboratory Lab Results: Lab Results 05/11/19 05/11/19 05/11/19 Range/Units 11:14 11:26 11:26 WBC 6.0 (3.5-10.8) 10^3/uL RBC 4.93 H (3.70-4.87) 10^6 /uL Hgb 15.5 (12.0-16.0) g/dL Hct 47 (35-47) % MCV 94 (80-97) fL MCH 31 (27-31) pg MCHC 33 (31-36) g/dL RDW 15 (10-15) % Plt Count 196 (150-450) 10^3/uL MPV 7.3 L (7.4-10.4) fL Neut % (Auto) 74.9 % Lymph % (Auto) 17.2 % [place] % (Auto) 6.4 % Eos % (Auto) 0.7 % Baso % (Auto) 0.8 % Absolute Neuts (auto) 4.5 (1.5-7.7) 10^3/ul Absolute Lymphs (auto) 1.0 (1.0-4.8) 10^3/ul Absolute Monos (auto) 0.4 (0-0.8) 10^3/ul Absolute Eos (auto) 0.0 (0-0.6) 10^3/ul Absolute Basos (auto) 0.0 (0-0.2) 10^3/ul Absolute Nucleated RBC 0.0 10^3/ul Nucleated RBC % 0.0 Sodium 140 (135-145) mmol/L Potassium 4.5 (3.5-5.0) mmol/L Chloride 106 (101-111) mmol/L Carbon Dioxide 28 (22-32) mmol/L Anion Gap 6 (2-11) mmol/L BUN 26 H (6-24) mg/dL Creatinine 0.98 H (0.51-0.95) mg/dL Est GFR ( Amer) 65.7 (>60) Est GFR (Non-Af Amer) 54.3 (>60) BUN/Creatinine Ratio 26.5 H (8-20) Glucose 222 H (70-100) mg/dL Lactic Acid (0.5-2.0) mmol/L Calcium 9.8 (8.6-10.3) mg/dL Magnesium 2.1 (1.9-2.7) mg/dL Total Bilirubin 0.50 (0.2-1.0) mg/dL AST 16 (13-39) U/L ALT 14 (7-52) U/L Alkaline Phosphatase 75 (34-104) U/L C-Reactive Protein 3.55 (<8.01) mg/L Total Protein 7.0 (6.4-8.9) g/dL Albumin 3.9 (3.2-5.2) g/dL Globulin 3.1 (2-4) g/dL Albumin/Globulin Ratio 1.3 (1-3) Lipase 13 (11.0-82.0) U/L Urine Color Yellow Urine Appearance Clear Urine pH 5.0 (5-9) Ur Specific [place] 1.025 (1.010-1.030) Urine Protein Negative (Negative) Urine Ketones Negative (Negative) Urine Blood Negative (Negative) Urine Nitrate Negative (Negative) Urine Bilirubin Negative (Negative) Urine Urobilinogen Negative (Negative) Ur Leukocyte Esterase Negative (Negative) Urine Glucose 3+(>=500 mg/dl) A (Negative) 05/11/19 Range/Units 11:26 WBC (3.5-10.8) 10^3/uL RBC (3.70-4.87) 10^6 /uL Hgb (12.0-16.0) g/dL Hct (35-47) % MCV (80-97) fL MCH (27-31) pg MCHC (31-36) g/dL RDW (10-15) % Plt Count (150-450) 10^3/uL MPV (7.4-10.4) fL Neut % (Auto) % Lymph % (Auto) % [place] % (Auto) % Eos % (Auto) % Baso % (Auto) % Absolute Neuts (auto) (1.5-7.7) 10^3/ul Absolute Lymphs (auto) (1.0-4.8) 10^3/ul Absolute Monos (auto) (0-0.8) 10^3/ul Absolute Eos (auto) (0-0.6) 10^3/ul Absolute Basos (auto) (0-0.2) 10^3/ul Absolute Nucleated RBC 10^3/ul Nucleated RBC % Sodium (135-145) mmol/L Potassium (3.5-5.0) mmol/L Chloride (101-111) mmol/L Carbon Dioxide (22-32) mmol/L Anion Gap (2-11) mmol/L BUN (6-24) mg/dL Creatinine (0.51-0.95) mg/dL Est GFR ( Amer) (>60) Est GFR (Non-Af Amer) (>60) BUN/Creatinine Ratio (8-20) Glucose (70-100) mg/dL Lactic Acid 2.4 H* (0.5-2.0) mmol/L Calcium (8.6-10.3) mg/dL Magnesium (1.9-2.7) mg/dL Total Bilirubin (0.2-1.0) mg/dL AST (13-39) U/L ALT (7-52) U/L Alkaline Phosphatase (34-104) U/L C-Reactive Protein (<8.01) mg/L Total Protein (6.4-8.9) g/dL Albumin (3.2-5.2) g/dL Globulin (2-4) g/dL Albumin/Globulin Ratio (1-3) Lipase (11.0-82.0) U/L Urine Color Urine Appearance Urine pH (5-9) Ur Specific [place] (1.010-1.030) Urine Protein (Negative) Urine Ketones (Negative) Urine Blood (Negative) Urine Nitrate (Negative) Urine Bilirubin (Negative) Urine Urobilinogen (Negative) Ur Leukocyte Esterase (Negative) Urine Glucose (Negative) Result Diagrams: 05/11/19 11:26 05/11/19 11:26 Lab Statement: Any lab studies that have been ordered have been reviewed, and results considered in the medical decision making process. Back Pain Course/Dx - Course Course Of Treatment: Patient is evaluated for right-sided flank pain radiating to the RLQ. Denies any urinary symptoms. Denies any nausea, vomiting, diarrhea , constipation. She does have a chronic history of back pain, however this is typically diffuse throughout the low back and has been doing physical therapy up until recently a few years ago. Labs unremarkable except for a BUN of 26.5, glucose of 222 and lactic of 2.4. Patient was given 1 L fluids. She denied any pain at rest and at this times of pain medications were not given. CT abdomen/pelvis obtained:IMPRESSION: #. 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 This is a new finding compared with November 12, 2018 exam. Negative for LEFT ureteral dilatation or visualized obstructing ureteral stone or lesion. Correlate with urinalysis and clinical assessment for potential LEFT pyelonephritis. #. Stigmata of chronic pancreatitis. No acute pancreatic inflammation evident. #. While the appendix is not discretely visualized, there is no inflammatory change in the right lower quadrant or region of the tip of the cecum to suggest presence of an acute inflammatory process. #. Approximate 4 cm diameter fat-containing umbilical hernia without inflammatory change. Showed no evidence of acute findings for pyelonephritis, renal stones or other kidney pathology. Pt encouraged moist heat to the area and will f/u with PCP. Patient and family member OK with plan and DC. - Diagnoses Differential Diagnosis/HQI/PQRI: Positive: Strain, Sprain Provider Diagnoses: Right flank pain, Muscle strain Discharge ED - Sign-Out/Discharge Documenting (check all that apply): Patient Departure - Discharge Plan Condition: Stable Disposition: HOME Prescriptions: traMADol TAB* [Ultram*] 50 mg PO Q8H PRN #15 tab MDD 3 PRN Reason: Pain Patient Education Materials: Muscle Strain (ED) Referrals: Miguel A Brandon MD [Primary Care Provider] - Additional Instructions: Please follow up with PCP Moist heat to the area Tylenol for discomfort Tramadol on opposite schedule of your tylenol for maximum relief Gentle stretches - Billing Disposition and Condition Condition: STABLE Disposition: Home
[2019-05-11 13:14] VITALS: BP 128/74
== END 2019-05-11 13:20 | disposition home or self-care (01) ==
LOC: ED 10:21
DX: R10.84 Generalized abdominal pain (principal); T14.8XXA Other injury of unspecified body region, initial encounter; E78.00 Pure hypercholesterolemia, unspecified; I10 Essential (primary) hypertension; K21.9 Gastro-esophageal reflux disease without esophagitis; Z88.6 Allergy status to analgesic agent; Z79.890 Hormone replacement therapy; Z79.899 Other long term (current) drug therapy; E11.9 Type 2 diabetes mellitus without complications; Z79.84 Long term (current) use of oral hypoglycemic drugs; Z86.718 Personal history of other venous thrombosis and embolism; X58.XXXA Exposure to other specified factors, initial encounter; Y92.9 Unspecified place or not applicable; Z79.01 Long term (current) use of anticoagulants
CPT/HCPCS: 36415; 74176; 80053; 81003; 83605; 83690; 83735; 85025; 86140; 96360; 96361; 99282

== ENCOUNTER 2020-07-22 19:14 | Inpatient (IN) ==
[2020-07-22 19:58] LABS: ABS Monocytes 0.7 10^3/ul (0-0.8); ABS Neutrophils 5.8 10^3/ul (1.5-7.7); Eosinophil % 0.5 %; Hematocrit 42 % (35-47); Lymphocyte % 12.7 %; Mean Corpuscular HGB Conc 33 g/dL (31-36); Mean Corpuscular Hemoglobin 32 pg (27-31); Mean Corpuscular Volume 96 fL (80-97); Mean Platelet Volume 7.4 fL (7.4-10.4); Platelet Count 166 10^3/uL (150-450); Red Blood Count 4.38 10^6 /uL (3.70-4.87); Red Cell Distribution Width 16 % (10-15); White Blood Count 7.6 10^3/uL (3.5-10.8)
[2020-07-22 20:16] LABS: ALT 16 U/L (7-52); Albumin 3.3 g/dL (3.2-5.2); Albumin/Globulin Ratio 1.2 (1-3); Alkaline Phosphatase 80 U/L (35-149); Blood Urea Nitrogen 24 mg/dL (6-24); CO2 Carbon Dioxide 26 mmol/L (22-32); Calcium 8.9 mg/dL (8.6-10.3); Chloride 109 mmol/L (101-111); EGFR African American 60.6 (>60); EGFR Non-African American 50.1 (>60); Globulin 2.8 g/dL (2-4); Glucose 354 mg/dL (70-100); Sodium 140 mmol/L (135-145); Total Protein 6.1 g/dL (6.4-8.9)
[2020-07-22 20:19] LABS: Anion Gap 5 mmol/L (2-11)
[2020-07-22 20:49] LABS: Troponin I 0.01 ng/mL (<0.03)
[2020-07-22 21:02] LABS: Urine Appearance Cloudy; Urine Bilirubin Negative (Negative); Urine Blood 2+ (Negative); Urine Color Yellow; Urine Glucose 3+(>=500 mg/dL) (Negative); Urine Ketones Negative (Negative); Urine Nitrite Negative (Negative); Urine Protein Negative (Negative); Urine Specific Gravity 1.027 (1.002-1.030); Urine Urobilinogen Negative (Negative)
[2020-07-22] MEDS ORDERED: Iodixanol (CONTRAST) 320 MG/ML 100 ML SDV IV ONE (21:04)
[2020-07-22 21:11] LABS: Urine Bacteria 1+ (Absent); Urine Red Blood Cell 2+(6-10/hpf) (Absent); Urine Squamous Epithelial Cell Present (Absent); Urine White Blood Cell 3+(>20/hpf) (Absent)
[2020-07-22 21:54] LABS: Potassium Redraw 4.4 mmol/L (3.5-5.0)
[2020-07-22] MEDS ORDERED: ceFAZolin 1 GM ADVAN 1 GM in NS 0.9% 50 ML 50 ML IVPB ONE (21:59)
[2020-07-23] MEDS ORDERED: Dextrose 50% Syringe 50 ml 25 GM/50 ML SYRINGE IV PUSH PRN (00:29)
[2020-07-23] MEDS: ceFAZolin 1 GM ADVAN 1 GM in NS 0.9% 50 ML 50 ML IVPB SCH ×3 (06:02→21:38)
[2020-07-23] MEDS ORDERED: NS 0.9% 1000 ml BAG 1,000 ML IV SCH (06:30)
[2020-07-23] MEDS ORDERED: CMCS: Pravastatin 20 mg TAB (NF) PO SCH (09:00)
[2020-07-23] MEDS: Nystatin TOP POWDER 15 GM BTL TOPICAL SCH ×2 (10:03→19:25)
[2020-07-23] MEDS ORDERED: Furosemide 20 mg/2 ml IV VIAL IV SLOW PU ONE (11:38)
[2020-07-23] MEDS ORDERED: Enoxaparin 40 MG/0.4 ML SYR SUBCUT SCH (12:00)
[2020-07-23] MEDS: Enoxaparin 30 MG/0.3 ML SYR SUBCUT SCH (13:54)
[2020-07-23] MEDS ORDERED: Perflutren Lipid Microsphere 3 ML VIAL ONE (15:01)
[2020-07-23] MEDS: CMC:Pravastatin 20 mg TAB (NF) PO SCH (19:25)
[2020-07-24] MEDS: ceFAZolin 1 GM ADVAN 1 GM in NS 0.9% 50 ML 50 ML IVPB SCH ×3 (05:57→21:30)
[2020-07-24 07:34] LABS: Calcium 8.8 mg/dL (8.6-10.3); EGFR African American 73.3 (>60); EGFR Non-African American 60.6 (>60); Potassium 4.3 mmol/L (3.5-5.0)
[2020-07-24] MEDS: Nystatin TOP POWDER 15 GM BTL TOPICAL SCH ×2 (10:10→20:28)
[2020-07-24] MEDS: Enoxaparin 30 MG/0.3 ML SYR SUBCUT SCH (12:49)
[2020-07-24] MEDS ORDERED: Furosemide 20 mg/2 ml IV VIAL IV SLOW PU SCH (17:16)
[2020-07-24] MEDS: CMC:Pravastatin 20 mg TAB (NF) PO SCH (20:33)
[2020-07-25] MEDS: ceFAZolin 1 GM ADVAN 1 GM in NS 0.9% 50 ML 50 ML IVPB SCH ×2 (06:26→14:43)
[2020-07-25 06:53] LABS: Calcium 8.8 mg/dL (8.6-10.3); Potassium 4.3 mmol/L (3.5-5.0)
[2020-07-25 06:58] LABS: EGFR African American 84.1 (>60); EGFR Non-African American 69.5 (>60)
[2020-07-25] MEDS: Nystatin TOP POWDER 15 GM BTL TOPICAL SCH ×2 (08:03→20:58)
[2020-07-25] MEDS ORDERED: Furosemide 20 mg/2 ml IV VIAL IV SLOW PU ONE ×2 (09:00→13:32)
[2020-07-25 09:39] LABS: ABS Eosinophils 0.1 10^3/ul (0-0.6); ABS Lymphocytes 1.2 10^3/ul (1.0-4.8); ABS Monocytes 0.5 10^3/ul (0-0.8); Eosinophil % 2.1 %; Hematocrit 44 % (35-47); Hemoglobin 14.6 g/dL (12.0-16.0); Mean Corpuscular HGB Conc 34 g/dL (31-36); Mean Corpuscular Hemoglobin 32 pg (27-31); Mean Corpuscular Volume 96 fL (80-97); Mean Platelet Volume 7.5 fL (7.4-10.4); Nucleated Red Blood Cells % 0.1; Platelet Count 173 10^3/uL (150-450); Red Blood Count 4.56 10^6 /uL (3.70-4.87); Red Cell Distribution Width 15 % (10-15); White Blood Count 5.8 10^3/uL (3.5-10.8)
[2020-07-25] MEDS: CMC:Pravastatin 20 mg TAB (NF) PO SCH (20:48)
[2020-07-26 07:20] LABS: ABS Eosinophils 0.1 10^3/ul (0-0.6); ABS Lymphocytes 1.3 10^3/ul (1.0-4.8); ABS Monocytes 0.5 10^3/ul (0-0.8); ABS Neutrophils 3.2 10^3/ul (1.5-7.7); Eosinophil % 2.8 %; Hematocrit 44 % (35-47); Hemoglobin 14.8 g/dL (12.0-16.0); Lymphocyte % 24.8 %; Mean Corpuscular HGB Conc 33 g/dL (31-36); Mean Corpuscular Hemoglobin 32 pg (27-31); Mean Corpuscular Volume 95 fL (80-97); Mean Platelet Volume 7.6 fL (7.4-10.4); Nucleated Red Blood Cells % 0.1; Platelet Count 195 10^3/uL (150-450); Red Blood Count 4.66 10^6 /uL (3.70-4.87); Red Cell Distribution Width 16 % (10-15); White Blood Count 5.2 10^3/uL (3.5-10.8)
[2020-07-26] MEDS: Furosemide 20 mg/2 ml IV VIAL IV SLOW PU SCH (08:33)
[2020-07-26] MEDS: Nystatin TOP POWDER 15 GM BTL TOPICAL SCH ×2 (08:34→20:00)
[2020-07-26] MEDS ORDERED: diPHENhydraMINE 25 mg TAB PO PRN (12:04)
[2020-07-26] MEDS: Triamcinolone 0.5% OINT 1 TUBE TOPICAL SCH ×2 (16:13→20:00)
[2020-07-26] MEDS: CMC:Pravastatin 20 mg TAB (NF) PO SCH (19:55)
[2020-07-26] MEDS: Nitrofurantoin (monohydrate/macrocrystals) 100 mg CAP PO SCH (19:55)
[2020-07-27] MEDS: Nystatin TOP POWDER 15 GM BTL TOPICAL SCH (07:44)
[2020-07-27] MEDS: Furosemide 20 mg/2 ml IV VIAL IV SLOW PU SCH ×2 (07:44→10:19)
[2020-07-27] MEDS: Triamcinolone 0.5% OINT 1 TUBE TOPICAL SCH (07:44)
[2020-07-27] MEDS: Nitrofurantoin (monohydrate/macrocrystals) 100 mg CAP PO SCH (07:45)
[2020-07-27 14:28] VITALS: BP 120/72
== END 2020-07-27 14:25 ==
LOC: ED 19:14 → MED 23:32
PROVIDERS: ADMIT Internal Medicine; ATTEND Hospitalist

== ENCOUNTER 2021-03-09 18:28 | Inpatient (IN) ==
[2021-03-09] MEDS ORDERED: Albuterol HFA INHALER 8 gm MDI INH ONE (19:49)
[2021-03-09] MEDS ORDERED: methylPREDNISolone 125 mg 2 ML VIAL IV ONE (19:57)
[2021-03-09 20:35] LABS: PCO2 Arterial 65 mmHg (35-45); PO2 Arterial 64 mmHg (80-100)
[2021-03-09] MEDS ORDERED: Furosemide 20 mg/2 ml IV VIAL IV SLOW PU ONE (20:39)
[2021-03-09] MEDS ORDERED: DOXYcycline 100 MG in NS 0.9% 250 ml 250 ML IVPB ONE (21:06)
[2021-03-09 21:17] LABS: ABS Lymphocytes 0.2 10^3/ul (1.0-4.8); ABS Monocytes 0.1 10^3/ul (0-0.8); ABS Neutrophils 10.7 10^3/ul (1.5-7.7); Hematocrit 36 % (35-47); Hemoglobin 11.4 g/dL (12.0-16.0); Lymphocyte % 1.8 %; Mean Corpuscular HGB Conc 32 g/dL (31-36); Mean Corpuscular Hemoglobin 30 pg (27-31); Mean Corpuscular Volume 93 fL (80-97); Mean Platelet Volume 8.3 fL (7.4-10.4); Platelet Count 131 10^3/uL (150-450); Red Blood Count 3.86 10^6 /uL (3.70-4.87); Red Cell Distribution Width 20 % (10-15)
[2021-03-09 21:35] LABS: ALT 19 U/L (7-52); Albumin 3.3 g/dL (3.2-5.2); Albumin/Globulin Ratio 0.8 (1-3); Alkaline Phosphatase 89 U/L (35-149); Blood Urea Nitrogen 32 mg/dL (6-24); CO2 Carbon Dioxide 28 mmol/L (22-32); Calcium 9.1 mg/dL (8.6-10.3); Chloride 93 mmol/L (101-111); Globulin 3.9 g/dL (2-4); Glucose 192 mg/dL (70-100); Sodium 133 mmol/L (135-145); Total Protein 7.2 g/dL (6.4-8.9); eGFR CKD-EPI 47.3 (>60)
[2021-03-09 22:00] LABS: Anion Gap 12 mmol/L (2-11)
[2021-03-09 22:11] LABS: Troponin I 0.02 ng/mL (<0.03)
[2021-03-09 23:13] LABS: PCO2 Arterial 53 mmHg (35-45); PO2 Arterial 67 mmHg (80-100)
[2021-03-09] MEDS ORDERED: Piperacillin/Tazobac ADVAN 3.375 GM in NS 0.9% 100 ml BAG 100 ML IV ONE (23:27)
[2021-03-09] MEDS ORDERED: Magnesium Hydroxide LIQ 30 ML UDC PO PRN (23:34)
[2021-03-09] MEDS ORDERED: Zosyn per Pharmacy NOTE FOLLOW UP SCH (23:45)
[2021-03-09] MEDS ORDERED: Remdesivir 100 mg Vial 200 MG in NS 0.9% 250 ml 210 ML IV ONE (23:48)
[2021-03-09] MEDS ORDERED: Furosemide 40 mg/4 ml IV VIAL IV SLOW PU ONE (23:55)
[2021-03-09 23:59] LABS: Calcium 9.3 mg/dL (8.6-10.3)
[2021-03-10 01:13] LABS: Urine Appearance Cloudy; Urine Bilirubin Negative (Negative); Urine Blood 2+ (Negative); Urine Color Yellow; Urine Glucose 3+(>=500 mg/dL) (Negative); Urine Ketones Negative (Negative); Urine Nitrite Negative (Negative); Urine Protein Negative (Negative); Urine Specific Gravity 1.011 (1.002-1.030); Urine Urobilinogen Negative (Negative)
[2021-03-10 01:38] LABS: Urine Bacteria 1+ (Absent); Urine Red Blood Cell 1+(3-5/hpf) (Absent); Urine Squamous Epithelial Cell Present (Absent); Urine White Blood Cell Trace(0-5/hpf) (Absent)
[2021-03-10 01:40] LABS: INR 2.3 (0.86-1.15)
[2021-03-10 02:00] LABS: Phosphorus 4.9 mg/dL (2.5-5.0)
[2021-03-10 02:01] LABS: Albumin 3.4 g/dL (3.2-5.2); Albumin/Globulin Ratio 0.9 (1-3); Calcium 9.2 mg/dL (8.6-10.3); Globulin 3.8 g/dL (2-4); Total Bilirubin 0.6 mg/dL (0.2-1.0); Total Protein 7.2 g/dL (6.4-8.9); eGFR CKD-EPI 43.6 (>60)
[2021-03-10 02:10] LABS: Potassium 4.4 mmol/L (3.5-5.0)
[2021-03-10 02:18] LABS: Troponin I 0.03 ng/mL (<0.03)
[2021-03-10 02:30] LABS: TSH Ultra Thyroid Stim Horm 5.31 mcIU/mL (0.34-5.60)
[2021-03-10] MEDS: ZOSYN 3.375 GM Q8H per EXTENDED INFUSION IV SCH ×3 (04:27→21:44)
[2021-03-10] MEDS: methylPREDNISolone 125 mg 2 ML VIAL IV SCH ×3 (04:30→21:45)
[2021-03-10] MEDS: Pantoprazole VIAL 40 MG VIAL IV SCH (04:32)
[2021-03-10 04:46] LABS: ABS Lymphocytes 0.3 10^3/ul (1.0-4.8); ABS Monocytes 0.1 10^3/ul (0-0.8); ABS Neutrophils 9.1 10^3/ul (1.5-7.7); Hematocrit 35 % (35-47); Hemoglobin 11.3 g/dL (12.0-16.0); Lymphocyte % 2.9 %; Mean Corpuscular HGB Conc 32 g/dL (31-36); Mean Corpuscular Hemoglobin 29 pg (27-31); Mean Corpuscular Volume 91 fL (80-97); Mean Platelet Volume 8.5 fL (7.4-10.4); Nucleated Red Blood Cells % 0.1; Platelet Count 138 10^3/uL (150-450); Red Blood Count 3.86 10^6 /uL (3.70-4.87); Red Cell Distribution Width 19 % (10-15); White Blood Count 9.5 10^3/uL (3.5-10.8)
[2021-03-10 04:51] LABS: INR 2.63 (0.86-1.15)
[2021-03-10 05:11] LABS: Albumin 3.2 g/dL (3.2-5.2); Albumin/Globulin Ratio 0.9 (1-3); Calcium 9.1 mg/dL (8.6-10.3); Globulin 3.6 g/dL (2-4); Potassium 4.5 mmol/L (3.5-5.0); Total Bilirubin 0.6 mg/dL (0.2-1.0); Total Protein 6.8 g/dL (6.4-8.9)
[2021-03-10] MEDS ORDERED: Furosemide 40 mg/4 ml IV VIAL IV ONE (08:45)
[2021-03-10] MEDS: CMC:Pravastatin 20 mg TAB (NF) PO SCH (09:29)
[2021-03-10] MEDS ORDERED: Remdesivir 200 mg LOADING DOSE X1 IV ONE (12:00)
[2021-03-10] MEDS: Linezolid 600 MG IVPREMIX(*) 600 MG/300 ML BAG IVPB SCH (13:41)
[2021-03-10] MEDS ORDERED: Dextrose 50% Syringe 50 ml 25 GM/50 ML SYRINGE IV PUSH PRN (19:55)
[2021-03-10] MEDS: Albuterol/Ipratropium NEB.SOL (2.5/0.5 MG) 3 ML NEB.SOLN INH PRN (19:59)
[2021-03-10] MEDS ORDERED: Insulin GLARGINE 100 un/ml 10 ml VIAL SUBCUT SCH (21:00)
[2021-03-11] MEDS: Linezolid 600 MG IVPREMIX(*) 600 MG/300 ML BAG IVPB SCH ×2 (02:19→13:24)
[2021-03-11] MEDS: Pantoprazole VIAL 40 MG VIAL IV SCH (05:49)
[2021-03-11] MEDS: methylPREDNISolone 125 mg 2 ML VIAL IV SCH (05:49)
[2021-03-11] MEDS ORDERED: Furosemide 40 mg/4 ml IV VIAL IV SLOW PU ONE (05:56)
[2021-03-11 05:57] LABS: ABS Lymphocytes 0.4 10^3/ul (1.0-4.8); ABS Monocytes 0.3 10^3/ul (0-0.8); ABS Neutrophils 9.2 10^3/ul (1.5-7.7); Hematocrit 33 % (35-47); Mean Corpuscular HGB Conc 33 g/dL (31-36); Mean Corpuscular Hemoglobin 29 pg (27-31); Mean Corpuscular Volume 89 fL (80-97); Mean Platelet Volume 8.2 fL (7.4-10.4); Nucleated Red Blood Cells % 0.2; Platelet Count 149 10^3/uL (150-450); Red Blood Count 3.73 10^6 /uL (3.70-4.87); Red Cell Distribution Width 19 % (10-15); White Blood Count 9.9 10^3/uL (3.5-10.8)
[2021-03-11 06:10] LABS: INR 2.83 (0.86-1.15)
[2021-03-11] MEDS: ZOSYN 3.375 GM Q8H per EXTENDED INFUSION IV SCH (06:12)
[2021-03-11 06:18] LABS: Albumin 3.2 g/dL (3.2-5.2); Albumin/Globulin Ratio 0.9 (1-3); Calcium 8.7 mg/dL (8.6-10.3); Globulin 3.4 g/dL (2-4); Potassium 3.9 mmol/L (3.5-5.0); Total Bilirubin 0.5 mg/dL (0.2-1.0); Total Protein 6.6 g/dL (6.4-8.9); eGFR CKD-EPI 39.3 (>60)
[2021-03-11] MEDS: CMC:Pravastatin 20 mg TAB (NF) PO SCH (08:09)
[2021-03-11] MEDS: Insulin GLARGINE 100 un/ml 10 ml VIAL SUBCUT SCH (08:25)
[2021-03-11] MEDS: Remdesivir 100 mg Vial 100 MG in NS 0.9% 250 ml 230 ML IV SCH (08:55)
[2021-03-11] MEDS: Albuterol/Ipratropium NEB.SOL (2.5/0.5 MG) 3 ML NEB.SOLN INH PRN (10:53)
[2021-03-11] MEDS: Azithromycin 500 mg/250 ml NS 500 MG/250 ML BAG IVPB SCH (12:17)
[2021-03-11] MEDS: methylPREDNISolone SOD 40 mg/ml 1 ml VIAL IV SCH (18:05)
[2021-03-12] MEDS: Linezolid 600 MG IVPREMIX(*) 600 MG/300 ML BAG IVPB SCH ×2 (00:27→12:52)
[2021-03-12] MEDS: Pantoprazole VIAL 40 MG VIAL IV SCH (04:19)
[2021-03-12 04:45] LABS: ABS Lymphocytes 0.4 10^3/ul (1.0-4.8); ABS Monocytes 0.3 10^3/ul (0-0.8); ABS Neutrophils 8.3 10^3/ul (1.5-7.7); Hematocrit 34 % (35-47); Hemoglobin 11.1 g/dL (12.0-16.0); Lymphocyte % 4.6 %; Mean Corpuscular HGB Conc 33 g/dL (31-36); Mean Corpuscular Hemoglobin 29 pg (27-31); Mean Corpuscular Volume 89 fL (80-97); Nucleated Red Blood Cells % 0.3; Platelet Count 150 10^3/uL (150-450); Red Blood Count 3.78 10^6 /uL (3.70-4.87); Red Cell Distribution Width 19 % (10-15)
[2021-03-12 04:51] LABS: INR 2.47 (0.86-1.15)
[2021-03-12 04:59] LABS: Albumin 3.1 g/dL (3.2-5.2); Albumin/Globulin Ratio 0.9 (1-3); Calcium 8.8 mg/dL (8.6-10.3); Globulin 3.4 g/dL (2-4); Potassium 3.4 mmol/L (3.5-5.0); Total Bilirubin 0.5 mg/dL (0.2-1.0); Total Protein 6.5 g/dL (6.4-8.9); eGFR CKD-EPI 40.4 (>60)
[2021-03-12] MEDS: methylPREDNISolone SOD 40 mg/ml 1 ml VIAL IV SCH ×2 (06:13→17:16)
[2021-03-12] MEDS: Insulin GLARGINE 100 un/ml 10 ml VIAL SUBCUT SCH (08:47)
[2021-03-12] MEDS: CMC:Pravastatin 20 mg TAB (NF) PO SCH (08:47)
[2021-03-12] MEDS: Remdesivir 100 mg Vial 100 MG in NS 0.9% 250 ml 230 ML IV SCH (09:03)
[2021-03-12] MEDS: Azithromycin 500 mg/250 ml NS 500 MG/250 ML BAG IVPB SCH (12:52)
[2021-03-13] MEDS: Linezolid 600 MG IVPREMIX(*) 600 MG/300 ML BAG IVPB SCH ×2 (00:51→13:20)
[2021-03-13] MEDS: methylPREDNISolone SOD 40 mg/ml 1 ml VIAL IV SCH ×2 (06:58→17:17)
[2021-03-13] MEDS: Insulin GLARGINE 100 un/ml 10 ml VIAL SUBCUT SCH (09:33)
[2021-03-13] MEDS: Remdesivir 100 mg Vial 100 MG in NS 0.9% 250 ml 230 ML IV SCH (09:44)
[2021-03-13] MEDS: Azithromycin 500 mg/250 ml NS 500 MG/250 ML BAG IVPB SCH (13:13)
[2021-03-13] MEDS ORDERED: Furosemide 40 mg/4 ml IV VIAL IV ONE (20:00)
[2021-03-14] MEDS: Linezolid 600 MG IVPREMIX(*) 600 MG/300 ML BAG IVPB SCH ×2 (00:34→12:22)
[2021-03-14] MEDS: methylPREDNISolone SOD 40 mg/ml 1 ml VIAL IV SCH ×2 (06:06→17:12)
[2021-03-14 07:27] LABS: ABS Lymphocytes 0.5 10^3/ul (1.0-4.8); ABS Monocytes 0.2 10^3/ul (0-0.8); ABS Neutrophils 5.6 10^3/ul (1.5-7.7); Hematocrit 35 % (35-47); Hemoglobin 11.4 g/dL (12.0-16.0); Lymphocyte % 7.6 %; Mean Corpuscular HGB Conc 33 g/dL (31-36); Mean Corpuscular Hemoglobin 30 pg (27-31); Mean Corpuscular Volume 90 fL (80-97); Mean Platelet Volume 7.8 fL (7.4-10.4); Nucleated Red Blood Cells % 0.7; Platelet Count 149 10^3/uL (150-450); Red Blood Count 3.86 10^6 /uL (3.70-4.87); Red Cell Distribution Width 19 % (10-15); White Blood Count 6.2 10^3/uL (3.5-10.8)
[2021-03-14 07:43] LABS: Calcium 8.8 mg/dL (8.6-10.3); Potassium 3.9 mmol/L (3.5-5.0); eGFR CKD-EPI 36.4 (>60)
[2021-03-14 08:40] LABS: Magnesium 2.1 mg/dL (1.9-2.7)
[2021-03-14] MEDS: Remdesivir 100 mg Vial 100 MG in NS 0.9% 250 ml 230 ML IV SCH (09:12)
[2021-03-14] MEDS: Insulin GLARGINE 100 un/ml 10 ml VIAL SUBCUT SCH (09:18)
[2021-03-14] MEDS ORDERED: Bumetanide IV 0.25 MG/ML 4 ml VIAL (1 mg) SLOW PUSH ONE (09:59)
[2021-03-14] MEDS: Morphine 2 MG/ML SYRINGE IV PRN (22:19)
[2021-03-15] MEDS: Linezolid 600 MG IVPREMIX(*) 600 MG/300 ML BAG IVPB SCH (01:13)
[2021-03-15] MEDS: Bumetanide IV 0.25 MG/ML 4 ml VIAL (1 mg) SLOW PUSH ONE ×2 (01:18→01:21)
[2021-03-15] MEDS ORDERED: Bumetanide IV 0.25 MG/ML 4 ml VIAL (1 mg) SLOW PUSH ONE (05:00)
[2021-03-15] MEDS: methylPREDNISolone 125 mg 2 ML VIAL IV SCH ×2 (06:03→17:27)
[2021-03-15] MEDS: Morphine 2 MG/ML SYRINGE IV PRN (08:14)
[2021-03-15] MEDS: Insulin GLARGINE 100 un/ml 10 ml VIAL SUBCUT SCH (08:44)
[2021-03-15] MEDS ORDERED: Morphine 2 MG/ML SYRINGE IV PRN ×2 (09:08→13:00)
[2021-03-15] MEDS ORDERED: LORazepam 2 mg VIAL 1 ml IV PUSH PRN ×2 (12:52→13:00)
[2021-03-15] MEDS ORDERED: Lorazepam PYXIS KEY PRN (12:52)
[2021-03-15] MEDS ORDERED: Ondansetron 4 mg VIAL 2 MG/ML 2 ml VIAL IV PRN (13:00)
[2021-03-15] MEDS ORDERED: Morphine PCA ADULT 5 MG/ML 30 ML PCA SCH (13:00)
[2021-03-15] MEDS ORDERED: Atropine 1% (ORAL/SL) 15 ML BTL SL PRN (13:00)
[2021-03-16 01:56] VITALS: BP 102/55
[2021-03-16] MEDS ORDERED: Morphine 2 MG/ML SYRINGE IV PRN ×2 (03:01→03:03)
== END 2021-03-16 02:55 | disposition expired | DRG 871 ==
LOC: ED 18:28 → SUATTDRO 23:28 → EDHOLD 23:28 → ICU 03-10 02:03 → MED 03-12 19:32
PROVIDERS: ADMIT Internal Medicine; ATTEND Internal Medicine